=== PATIENT | male | born 1945 | race Caucasian/White ===

== ENCOUNTER 2018-08-13 10:28 | Outpatient (REF) | payer MEDICARE, SELFPAY ==
[2018-08-13 13:00] LABS: HCT 44.3 % (40.0-50.0); HGB 14.7 g/dL (13.5-17.5); Mean Corp. HGB Concentration 33.2 g/dL (32.0-36.0); Mean Corpuscular Hemoglobin 29.5 pg (27.0-33.0); Mean Platelet Volume 10.1 fL (8.0-11.0); Platelet Count 335 x1000/uL (130-400); RBC 4.98 m/cumm (4.50-6.00); RBC Distribution Width 13.3 % (11.8-14.1)
[2018-08-13 13:24] LABS: ALT 41 U/L (12-78); AST 41 U/L (15-37); Albumin 3.7 g/dL (3.4-5.0); Alkaline Phosphatase 101 U/L (46-116); Anion Gap 5.8 mmol/L (3-11); BUN 17 mg/dL (7-18); Bilirubin, Total 0.6 mg/dL (0.2-1.0); CO2 33.2 mmol/L (21.0-32.0); CREATININE 1.15 mg/dL (0.70-1.30); Calcium 9.5 mg/dL (8.5-10.1); Chloride 96 mmol/L (98-107); Cholesterol 198 mg/dL (50-200); Glucose 134 mg/dL (70-100); HDL Cholesterol 58 mg/dL (40-60); LDL CHOLESTEROL 129 mg/dL (<100); Potassium 3.4 mmol/L (3.5-5.1); Sodium 135 mmol/L (136-145); Total Protein 7.9 g/dL (6.4-8.2); Triglyceride 88 mg/dL (30-150)
== END 2018-08-13 10:48 ==
LOC: NCHCN 10:28
PROVIDERS: Visit Provider Family Medicine
DX: I10 Essential (primary) hypertension (principal); E78.5 Hyperlipidemia, unspecified
CPT/HCPCS: 80053; 80061; 83721; 85027

== ENCOUNTER 2020-01-20 16:26 | Outpatient (REF) | payer MEDICARE, SELFPAY ==
[2020-01-22 16:00] LABS: COVID-19 RT-PCR Result Not Detected ((See Note))
== END 2020-01-20 16:46 ==
LOC: LBO 16:26
PROVIDERS: Visit Provider Physician Assistant
DX: R06.00 Dyspnea, unspecified (principal)
CPT/HCPCS: U0003

== ENCOUNTER 2020-06-07 02:15 | Outpatient (CLI) | payer MEDICARE, SELFPAY ==
[2020-06-07 10:51] LABS: Abs Immature Grans 0.03 10^3/uL (0.0-0.06); Absolute Eosinophil Count 0.15 10^3/uL (0.0-0.7); Absolute Lymphocyte Count 1.56 10^3/uL (1.2-3.4); Absolute Monocyte Count 0.99 10^3/uL (0.1-0.8); Absolute Neutrophil Count 6.33 10^3/uL (1.2-6.7); Basophils % 1.1; Eosinophils % 1.6; HCT 43.9 % (40.0-50.0); HGB 14.9 g/dL (13.5-17.5); Immature Grans % 0.3; MCH 30.2 pg (27.0-33.0); MCHC 33.9 % (32.0-36.0); MCV 88.9 fL (80-95); MPV 9.2 fL (8.0-11.0); Monocytes % 10.8; Neutrophils % 69.2; Nucleated RBC 0 %; Platelet Count 386 10^3/uL (130-400); RBC 4.94 10^6/uL (4.36-5.78); RDW-SD 42.2 fL; WBC 9.16 10^3/uL (4.4-10.8)
[2020-06-07 11:24] LABS: ALT 25 U/L (16-63); AST 24 U/L (15-37); Albumin 3.5 g/dL (3.4-5.0); Alkaline Phosphatase 95 U/L (46-116); Anion Gap 8.3 mmol/L (3-11); BUN 9 mg/dL (7-18); Bilirubin, Total 0.4 mg/dL (0.2-1.0); C-Reactive Protein 2.68 mg/dL (0.0-0.3); CO2 29.7 mmol/L (21.0-32.0); CREATININE 1.02 mg/dL (0.70-1.30); Calcium 8.9 mg/dL (8.5-10.1); Chloride 99 mmol/L (98-107); Glucose 149 mg/dL (74-106); Potassium 3.9 mmol/L (3.5-5.1); Sodium 137 mmol/L (136-145); Total Protein 7.2 g/dL (6.4-8.2); Uric Acid 6.9 mg/dL (3.5-7.2)
[2020-06-07 11:29] LABS: ESR 27 mm/hr (1-20)
[2020-06-07 15:55] LABS: Rheumatoid Factor <8.6 IU/mL (<12.0)
[2020-06-08 09:41] LABS: Cyclic Citrullinated Peptide <2.5 U/mL (<5.0)
[2020-06-08 10:00] LABS: Hepatitis B Surface Ag Negative (Negative)
[2020-06-08 10:30] LABS: Hepatitis C Ab w Rflx HCV PCR Negative (Negative)
== END 2020-06-07 02:35 ==
PROVIDERS: PCP Family Medicine; Referring Provider Internal Medicine Rheumatology; Visit Provider Family Medicine
DX: L40.50 Arthropathic psoriasis, unspecified (principal); Z11.59 Encounter for screening for other viral diseases; Z01.84 Encounter for antibody response examination
CPT/HCPCS: 36415; 80053; 85652; 86200; 86803; 87340; 84550; 85025; 86140; 86431; 86704

== ENCOUNTER 2020-07-19 03:08 | Outpatient (CLI) | payer MEDICARE, SELFPAY ==
[2020-07-19 10:57] LABS: Abs Immature Grans 0.02 10^3/uL (0.0-0.06); Absolute Basophil Count 0.04 10^3/uL (0.0-0.2); Absolute Eosinophil Count 0.21 10^3/uL (0.0-0.7); Absolute Monocyte Count 0.82 10^3/uL (0.1-0.8); Absolute Neutrophil Count 5.04 10^3/uL (1.2-6.7); Basophils % 0.5; Eosinophils % 2.7; HCT 41.3 % (40.0-50.0); HGB 14.1 g/dL (13.5-17.5); Immature Grans % 0.3; Lymphocytes % 20.7; MCH 30.8 pg (27.0-33.0); MCHC 34.1 % (32.0-36.0); MCV 90.2 fL (80-95); MPV 9.4 fL (8.0-11.0); Monocytes % 10.6; Neutrophils % 65.2; Nucleated RBC 0 %; Platelet Count 369 10^3/uL (130-400); RBC 4.58 10^6/uL (4.36-5.78); RDW 13.1 % (11.8-14.1); RDW-SD 42.1 fL; WBC 7.73 10^3/uL (4.4-10.8)
[2020-07-19 11:51] LABS: ALT 19 U/L (16-63); AST 17 U/L (15-37); Albumin 3.7 g/dL (3.4-5.0); Alkaline Phosphatase 86 U/L (46-116); Anion Gap 4.7 mmol/L (3-11); BUN 17 mg/dL (7-18); Bilirubin, Total 0.6 mg/dL (0.2-1.0); CO2 31.3 mmol/L (21.0-32.0); CREATININE 1.07 mg/dL (0.70-1.30); Calcium 9.2 mg/dL (8.5-10.1); Chloride 100 mmol/L (98-107); Glucose 116 mg/dL (74-106); Potassium 3.6 mmol/L (3.5-5.1); Sodium 136 mmol/L (136-145); Total Protein 7.3 g/dL (6.4-8.2)
[2020-07-19 12:09] LABS: ESR 33 mm/hr (1-20)
== END 2020-07-19 03:28 ==
PROVIDERS: PCP Family Medicine; Visit Provider Internal Medicine Rheumatology
DX: L40.50 Arthropathic psoriasis, unspecified (principal)
CPT/HCPCS: 36415; 80053; 85652; 85025; 86140

== ENCOUNTER 2020-08-18 04:01 | Outpatient (CLI) | payer MEDICARE, SELFPAY ==
[2020-08-18 10:11] LABS: Abs Immature Grans 0.01 10^3/uL (0.0-0.06); Absolute Basophil Count 0.04 10^3/uL (0.0-0.2); Absolute Eosinophil Count 0.13 10^3/uL (0.0-0.7); Absolute Neutrophil Count 5.21 10^3/uL (1.2-6.7); Basophils % 0.5; Eosinophils % 1.8; HCT 42.8 % (40.0-50.0); HGB 14.7 g/dL (13.5-17.5); Immature Grans % 0.1; Lymphocytes % 18.9; MCH 30.4 pg (27.0-33.0); MCHC 34.3 % (32.0-36.0); MCV 88.6 fL (80-95); Monocytes % 8.1; Neutrophils % 70.6; Nucleated RBC 0 %; Platelet Count 369 10^3/uL (130-400); RBC 4.83 10^6/uL (4.36-5.78); RDW 13.3 % (11.8-14.1); RDW-SD 42.5 fL; WBC 7.39 10^3/uL (4.4-10.8)
[2020-08-18 10:23] LABS: ALT 25 U/L (16-63); AST 29 U/L (15-37); Albumin 3.7 g/dL (3.4-5.0); Alkaline Phosphatase 87 U/L (46-116); Anion Gap 4.2 mmol/L (3-11); BUN 10 mg/dL (7-18); Bilirubin, Total 0.6 mg/dL (0.2-1.0); CO2 31.8 mmol/L (21.0-32.0); CREATININE 1.04 mg/dL (0.70-1.30); Chloride 101 mmol/L (98-107); Glucose 106 mg/dL (74-106); Potassium 3.5 mmol/L (3.5-5.1); Sodium 137 mmol/L (136-145)
== END 2020-08-18 04:21 ==
PROVIDERS: Internal Medicine Rheumatology; PCP Family Medicine; Visit Provider Family Medicine
DX: L40.50 Arthropathic psoriasis, unspecified (principal)
CPT/HCPCS: 36415; 80053; 85025

== ENCOUNTER 2020-09-16 03:38 | Outpatient (CLI) | payer MEDICARE, SELFPAY ==
[2020-09-16 11:05] LABS: Abs Immature Grans 0.02 10^3/uL (0.0-0.06); Absolute Basophil Count 0.04 10^3/uL (0.0-0.2); Absolute Eosinophil Count 0.08 10^3/uL (0.0-0.7); Absolute Neutrophil Count 5.24 10^3/uL (1.2-6.7); Basophils % 0.6; Eosinophils % 1.1; HCT 40.2 % (40.0-50.0); HGB 13.9 g/dL (13.5-17.5); Immature Grans % 0.3; Lymphocytes % 18.4; MCH 30.7 pg (27.0-33.0); MCHC 34.6 % (32.0-36.0); MCV 88.7 fL (80-95); Monocytes % 5.6; Nucleated RBC 0 %; Platelet Count 340 10^3/uL (130-400); RBC 4.53 10^6/uL (4.36-5.78); RDW 14.1 % (11.8-14.1); RDW-SD 45.6 fL; WBC 7.08 10^3/uL (4.4-10.8)
[2020-09-16 11:58] LABS: ALT 28 U/L (16-63); AST 21 U/L (15-37); Albumin 3.8 g/dL (3.4-5.0); Alkaline Phosphatase 80 U/L (46-116); Anion Gap 7.7 mmol/L (3-11); BUN 14 mg/dL (7-18); Bilirubin, Total 0.7 mg/dL (0.2-1.0); CO2 28.3 mmol/L (21.0-32.0); CREATININE 1.17 mg/dL (0.70-1.30); Calcium 9.1 mg/dL (8.5-10.1); Chloride 100 mmol/L (98-107); Glucose 145 mg/dL (74-106); Potassium 3.6 mmol/L (3.5-5.1); Sodium 136 mmol/L (136-145); Total Protein 7.3 g/dL (6.4-8.2)
== END 2020-09-16 03:58 ==
PROVIDERS: PCP Family Medicine; Visit Provider Internal Medicine Rheumatology
DX: L40.50 Arthropathic psoriasis, unspecified (principal)
CPT/HCPCS: 36415; 80053; 85025

== ENCOUNTER 2020-12-02 02:43 | Outpatient (CLI) | payer MEDICARE, SELFPAY ==
[2020-12-02 10:27] LABS: Abs Immature Grans 0.01 10^3/uL (0.0-0.06); Absolute Basophil Count 0.04 10^3/uL (0.0-0.2); Absolute Eosinophil Count 0.09 10^3/uL (0.0-0.7); Absolute Lymphocyte Count 1.28 10^3/uL (1.2-3.4); Basophils % 0.6; Eosinophils % 1.4; HGB 13.7 g/dL (13.5-17.5); Immature Grans % 0.2; Lymphocytes % 19.6; MCH 31.3 pg (27.0-33.0); MCHC 34.3 % (32.0-36.0); MCV 91.3 fL (80-95); Monocytes % 9.2; Nucleated RBC 0 %; Platelet Count 321 10^3/uL (130-400); RBC 4.38 10^6/uL (4.36-5.78); RDW 13.1 % (11.8-14.1); RDW-SD 43.4 fL; WBC 6.52 10^3/uL (4.4-10.8)
[2020-12-02 11:20] LABS: ALT 35 U/L (16-63); AST 22 U/L (15-37); Albumin 3.6 g/dL (3.4-5.0); Alkaline Phosphatase 100 U/L (46-116); Anion Gap 5.2 mmol/L (3-11); BUN 12 mg/dL (7-18); Bilirubin, Total 0.8 mg/dL (0.2-1.0); CO2 31.8 mmol/L (21.0-32.0); CREATININE 1.1 mg/dL (0.70-1.30); Calcium 9.2 mg/dL (8.5-10.1); Chloride 97 mmol/L (98-107); Glucose 99 mg/dL (74-106); Potassium 4.4 mmol/L (3.5-5.1); Sodium 134 mmol/L (136-145); Total Protein 7.1 g/dL (6.4-8.2)
== END 2020-12-02 02:44 | disposition home or self-care (01) ==
LOC: LBO 02:43
PROVIDERS: PCP Family Medicine; Visit Provider Internal Medicine Rheumatology
DX: L40.50 Arthropathic psoriasis, unspecified (principal)
CPT/HCPCS: 36415; 80053; 85025

== ENCOUNTER 2021-02-28 04:15 | Outpatient (CLI) | payer MEDICARE, SELFPAY ==
[2021-02-28 12:16] LABS: Abs Immature Grans 0.03 10^3/uL (0.0-0.06); Absolute Basophil Count 0.04 10^3/uL (0.0-0.2); Absolute Eosinophil Count 0.23 10^3/uL (0.0-0.7); Absolute Monocyte Count 0.78 10^3/uL (0.1-0.8); Absolute Neutrophil Count 5.35 10^3/uL (1.2-6.7); Basophils % 0.5; Eosinophils % 2.9; HCT 41.8 % (40.0-50.0); Immature Grans % 0.4; Lymphocytes % 19.9; MCHC 33.5 % (32.0-36.0); MCV 92.5 fL (80-95); MPV 9.3 fL (8.0-11.0); Monocytes % 9.7; Neutrophils % 66.6; Nucleated RBC 0 %; Platelet Count 315 10^3/uL (130-400); RBC 4.52 10^6/uL (4.36-5.78); RDW 13.6 % (11.8-14.1); RDW-SD 45.6 fL; WBC 8.03 10^3/uL (4.4-10.8)
[2021-02-28 13:07] LABS: ALT 24 U/L (16-63); AST 23 U/L (15-37); Albumin 3.8 g/dL (3.4-5.0); Alkaline Phosphatase 98 U/L (46-116); Anion Gap 6.9 mmol/L (3-11); BUN 17 mg/dL (7-18); Bilirubin, Total 0.5 mg/dL (0.2-1.0); CO2 31.1 mmol/L (21.0-32.0); Calcium 9.1 mg/dL (8.5-10.1); Chloride 101 mmol/L (98-107); Glucose 92 mg/dL (74-106); Sodium 139 mmol/L (136-145); Total Protein 7.2 g/dL (6.4-8.2)
== END 2021-02-28 04:16 | disposition home or self-care (01) ==
LOC: LBO 04:15
PROVIDERS: PCP Family Medicine; Visit Provider Internal Medicine Rheumatology
DX: L40.50 Arthropathic psoriasis, unspecified (principal)
CPT/HCPCS: 36415; 80053; 85025

== ENCOUNTER 2021-06-16 04:06 | Outpatient (CLI) | payer MEDICARE, SELFPAY ==
[2021-06-16 09:04] LABS: Abs Immature Grans 0.02 10^3/uL (0.0-0.06); Absolute Basophil Count 0.05 10^3/uL (0.0-0.2); Absolute Eosinophil Count 0.21 10^3/uL (0.0-0.7); Absolute Lymphocyte Count 1.49 10^3/uL (1.2-3.4); Absolute Monocyte Count 0.51 10^3/uL (0.1-0.8); Absolute Neutrophil Count 4.38 10^3/uL (1.2-6.7); Basophils % 0.8; ESR 9 mm/hr (0-20); Eosinophils % 3.2; HCT 42.7 % (40.0-50.0); HGB 14.1 g/dL (13.5-17.5); Immature Grans % 0.3; Lymphocytes % 22.4; MCH 29.9 pg (27.0-33.0); MCV 90.5 fL (80-95); MPV 9.3 fL (8.0-11.0); Monocytes % 7.7; Neutrophils % 65.6; Nucleated RBC 0 %; Platelet Count 316 10^3/uL (130-400); RBC 4.72 10^6/uL (4.36-5.78); RDW 13.5 % (11.8-14.1); RDW-SD 44.5 fL; WBC 6.66 10^3/uL (4.4-10.8)
[2021-06-16 10:22] LABS: ALT 29 U/L (16-63); AST 25 U/L (15-37); Albumin 3.9 g/dL (3.4-5.0); Alkaline Phosphatase 81 U/L (46-116); Anion Gap 4.7 mmol/L (3-11); BUN 14 mg/dL (7-18); Bilirubin, Total 0.8 mg/dL (0.2-1.0); C-Reactive Protein 1.15 mg/dL (0.0-0.3); CO2 35.3 mmol/L (21.0-32.0); CREATININE 0.9 mg/dL (0.70-1.30); Calcium 9.4 mg/dL (8.5-10.1); Chloride 101 mmol/L (98-107); Glucose 95 mg/dL (74-106); Sodium 141 mmol/L (136-145); Total Protein 7.7 g/dL (6.4-8.2)
== END 2021-06-16 04:07 | disposition home or self-care (01) ==
PROVIDERS: PCP Family Medicine; Visit Provider Internal Medicine
DX: L40.50 Arthropathic psoriasis, unspecified (principal)
CPT/HCPCS: 36415; 80053; 85652; 85025; 86140

== ENCOUNTER 2021-08-02 08:55 | Outpatient (CLI) | payer MEDICARE, SELFPAY ==
[2021-08-02 10:17] LABS: Abs Immature Grans 0.02 10^3/uL (0.0-0.06); Absolute Basophil Count 0.04 10^3/uL (0.0-0.2); Absolute Eosinophil Count 0.18 10^3/uL (0.0-0.7); Absolute Lymphocyte Count 1.45 10^3/uL (1.2-3.4); Absolute Monocyte Count 0.81 10^3/uL (0.1-0.8); Absolute Neutrophil Count 4.86 10^3/uL (1.2-6.7); Basophils % 0.5; Eosinophils % 2.4; HCT 45.1 % (40.0-50.0); HGB 15.4 g/dL (13.5-17.5); Immature Grans % 0.3; Lymphocytes % 19.7; MCH 29.8 pg (27.0-33.0); MCHC 34.1 % (32.0-36.0); MCV 87.2 fL (80-95); Neutrophils % 66.1; Nucleated RBC 0 %; Platelet Count 289 10^3/uL (130-400); RBC 5.17 10^6/uL (4.36-5.78); RDW 13.9 % (11.8-14.1); RDW-SD 43.9 fL; WBC 7.36 10^3/uL (4.4-10.8)
[2021-08-02 10:26] LABS: ESR 11 mm/hr (0-20)
[2021-08-02 11:24] LABS: ALT 46 U/L (16-63); AST 39 U/L (15-37); Albumin 4.1 g/dL (3.4-5.0); Alkaline Phosphatase 80 U/L (46-116); Anion Gap 8.4 mmol/L (3-11); BUN 12 mg/dL (7-18); Bilirubin, Total 0.6 mg/dL (0.2-1.0); C-Reactive Protein 0.95 mg/dL (0.0-0.3); CO2 32.6 mmol/L (21.0-32.0); CREATININE 1.1 mg/dL (0.70-1.30); Calcium 9.5 mg/dL (8.5-10.1); Chloride 102 mmol/L (98-107); Glucose 118 mg/dL (74-106); Potassium 3.8 mmol/L (3.5-5.1); Sodium 143 mmol/L (136-145); Total Protein 7.6 g/dL (6.4-8.2)
== END 2021-08-02 08:56 | disposition home or self-care (01) ==
LOC: LBO 08:55
PROVIDERS: PCP Family Medicine; Visit Provider Internal Medicine Rheumatology
DX: L40.50 Arthropathic psoriasis, unspecified (principal)
CPT/HCPCS: 36415; 80053; 85652; 85025; 86140

== ENCOUNTER 2021-12-19 04:20 | Outpatient (CLI) | payer MEDICARE, SELFPAY ==
[2021-12-19 11:24] LABS: Abs Immature Grans 0.01 10^3/uL (0.0-0.06); Absolute Basophil Count 0.04 10^3/uL (0.0-0.2); Absolute Eosinophil Count 0.24 10^3/uL (0.0-0.7); Absolute Monocyte Count 0.84 10^3/uL (0.1-0.8); Absolute Neutrophil Count 4.56 10^3/uL (1.2-6.7); Basophils % 0.5; Eosinophils % 3.3; HCT 43.7 % (40.0-50.0); HGB 14.6 g/dL (13.5-17.5); Immature Grans % 0.1; Lymphocytes % 21.9; MCH 30.1 pg (27.0-33.0); MCHC 33.4 % (32.0-36.0); MCV 90.1 fL (80-95); MPV 9.2 fL (8.0-11.0); Monocytes % 11.5; Neutrophils % 62.7; Nucleated RBC 0 %; Platelet Count 322 10^3/uL (130-400); RBC 4.85 10^6/uL (4.36-5.78); RDW 13.9 % (11.8-14.1); RDW-SD 45.6 fL; WBC 7.29 10^3/uL (4.4-10.8)
[2021-12-19 11:28] LABS: ESR 16 mm/hr (0-20)
[2021-12-19 12:33] LABS: ALT 24 U/L (16-63); AST 17 U/L (15-37); Albumin 4.3 g/dL (3.4-5.0); Alkaline Phosphatase 94 U/L (46-116); Anion Gap 8.2 mmol/L (3-11); BUN 17 mg/dL (7-18); Bilirubin, Total 0.6 mg/dL (0.2-1.0); C-Reactive Protein 0.85 mg/dL (0.0-0.3); CO2 30.8 mmol/L (21.0-32.0); CREATININE 0.9 mg/dL (0.70-1.30); Calcium 9.4 mg/dL (8.5-10.1); Chloride 98 mmol/L (98-107); Glucose 97 mg/dL (74-106); Potassium 3.8 mmol/L (3.5-5.1); Sodium 137 mmol/L (136-145); Total Protein 7.6 g/dL (6.4-8.2)
== END 2021-12-19 04:21 | disposition home or self-care (01) ==
LOC: LBO 04:20
PROVIDERS: Internal Medicine; PCP Family Medicine; Visit Provider Internal Medicine Rheumatology
DX: L40.50 Arthropathic psoriasis, unspecified (principal)
CPT/HCPCS: 36415; 80053; 85652; 85025; 86140

== ENCOUNTER 2022-05-05 01:14 | Outpatient (CLI) | payer MEDICARE, SELFPAY ==
--- OUTSIDE RECORDS SUMMARY | 2022-05-05 01:21 | XMS_ITS | Encounter Summary ---
:1945 Author Organization [facility] Address [address] [place] [address] Care Team Providers Name Role Phone Priscilla Moura MD Primary Care Provider Encounter Details Date Type Department Care Team Description 07/26/2020 Office Visit Rheumatology at [facility] [place] Jaylan, Psoriatic arthritis; [facility] Giovanni Ramos Medication monitoring encounter; [facility] MEDICAL High risk medication use; [place] [address] Pain in both feet; [phone] RHEUMATOLOGY DEP T Chronic pain of both knees; [place] [address] 6 Psoriasis; [phone] Morning joint s tiffness (Work) Social History Tobacco Use Types Packs/Day Years Used Date Former Smoker Cigarettes Smokeless Tobacco: Never Used Alcohol Use Standard Drinks/Week Comments Yes 0 (1 standard drink = 0.6 oz pure alcoho l) Alcohol Habits Answer Date Recorded How often do you have a drink containing 4 or more times a w [place] 06/02/2020 alcohol? How many drinks containing alcohol do you have Not asked on a typical day when you are drinking? How often do you have six or more drinks on one Not asked occasion? Comment: Not asked Sex Assigned at Date Recorded Not on file documented as of this encounter Last Filed Vital Signs Vital Sign [place] Time Taken Comments Blood Pressure 145/81 07/26/2020 10:54 AM EST Pulse 76 07/26/2020 10:54 AM EST Temperature 36.6 ??C (97.8 ??F) 07/26/2020 10:54 AM EST Respiratory Rate - - Oxygen Saturation 99% 07/26/2020 10:54 AM EST Inhaled Oxygen Concentration - - Weight 81.6 kg (180 lb) 07/26/2020 10:54 AM EST Height 167.6 cm (5' 6) 07/26/2020 10:54 AM EST Body Mass Index 29.05 07/26/2020 10:54 AM EST documented in this encounter Progress Notes Richard Tian - 07/26/2020 11:00 AM EST Rheumatology Outpatient Follow Up Note PCP: Priscilla Moura MD Mack Charles is a 75 y.o. male who we are seeing for the continuing management of psoriatic arthritis. Rheum History: -Presented 06/06 with long standing extensive psoriasis and arthritis symptoms but was never on treatment due to insurance and cost issues. -His physical examination showed sausage digits, enthesitis at b/l achilles and extensive psoriasis. -His labs from external facility showed normal RF, anti CCP ab and neg Hepatitis serologies. He had normal LFTs as well. -Started on 15 mg of MTX weekly and daily folic acid. I have reviewed the patient's medical, family and social history in detail; there are no changes to the history as noted in the electronic medical record. Meds and Allergies: Reviewed in eDH Interval History: Accompanied by his partner today. Very hard of hearing. Feels the same with pain but the range of motion improved. Skin disease is feeling better as well. Has morning stiffness less than half an hour nowadays. The only joints which are hurting right now are his knees and the feet. ROS (positives in bold): Gen: No fevers, no chills, no night sweats Pulm: No SOB and no cough CV: No chest pain Abd: No abd pain, no nausea, no vomiting, no diarrhea MSK: See HPI Physical exam: BP 145/81 Pulse 76 Temp 36.6 ??C (97.8 ??F) (Temporal) Ht 167.6 cm (5' 6) Wt 81.6 kg (180 lb) SpO2 99% BMI 29.05 kg/m?? Gen: Well appearing, alert and oriented x 3, NAD HEENT: Moist mucous membranes, no oral ulcers, normal sclerae Lymph: No cervical LAD Heart: Regular rate, no murmurs, rubs or gallops Lungs: Clear to auscultation b/l Abd: Soft, NT/ND, bowel sounds + Skin: Warm and dry, small psoriatic patches on bilateral extensor elbows Joints: Normal ROM throughout the upper and lower extremity joints, no synovitis or tenderness in the hands, bilateral Rhiannon's and Heberden's, wrists,elbows, shoulders, bilateral patellar tendinitis, right great toe mildly swollen and tender Labs/Studies: His last lab work from 07/19/20 shows normal AST/ALT and CBC. Mildly elevated CRP at 2.5. (0-0.3) and ESR of 33. (1-20). Assessment: Mack Charles is a 75 y.o. male with the PMH of psoriasis, PsA, HTN and anxiety who is presenting for follow up of his psoriatic arthritis. Presented last visit with extensive psoriasis and arthritis symptoms but he was never on treatment due to insurance and cost issues. His physical examination showed sausage digits, enthesitis at b/l achilles and extensive psoriasis. His labs from external showed normal RF, anti CCP ab, mildly elevated ESR, CRP and neg Hepatitis serologies. He had normal LFTs as well. He was started on 15 mg of MTX weekly and daily folic acid. His last lab work from 07/19/20 shows normal AST/ALT and CBC. Mildly elevated CRP at 2.5. (0-0.3) and ESR of 33. (1-20). Currently he feels significantly better compared to before. Morning stiffness of less than half an hour and no recent red/hot/swollen joints. Physical examination does not show any evidence of synovitis in the hands but he has some tendinitis in his knees and there is mild soft tissue swelling around the right great toe. He has been tolerating methotrexate without any side effects. Plan: -Continue methotrexate at 15 milligrams weekly along with daily folic acid. -If labs remain stable, will go up on methotrexate to 20 mg next month. -Continue monthly lab checks for now, until on a stable dose of methotrexate. -Continue Voltaren gel as needed on knees and feet. -Patient is not sure what vaccinations he has received, his partner will discuss with his PCP and get updated vaccines. Patient was discussed with Dr. Harris. Richard Tian MD Rheumatology Fellow Pager: [phone] Raymond Harris MD - 07/26/2020 11:00 AM EST Attestation Rheumatology I have seen and examined the patient, reviewed the above history, exam, and assessment. I agree with the details as written. The assessment and plan was formulated with the fellow, Richard Tian MD in discussion with me and I agree with the details as written except revision below. Pertinent History: Mack Charles is a 75 y.o. male psoriatic arthritis and psoriasis currently on methotrexate and folic acid normal RF and CCP reports reduced morning stiffness with some bilateral knee pain and foot pain Pertinent Exam: No active synovitis noted on exam hard of hearing Major issues addressed and Plan: /Nissa psoriatic arthritis, hypertension, anxiety, hard of hearing, elevated CRP ESR WNL overall doing quite well we will continue Voltaren gel. We will confirm the patient is up-to-date on vaccinations. Continue methotrexate with methotrexate monitoring labs monthly if titrating up once on stable dose for 2 to 3 months then will monitor every 3 months Raymond Harris MD documented in this encounter Plan of Treatment Upcoming Encounters Date Type Specialty Care Team Description 05/09/2022 Office Visit Rheumatology Alexandro Tian nd, MD [place] [address] (Wo rk) documented as of this encounter Visit Diagnoses Diagnosis Psoriatic arthritis Psoriatic arthropathy Medication monitoring encounter Encounter for therapeutic drug monitorin g High risk medication use Encounter for long-term (current) use of other medications Pain in both feet Pain in limb Chronic pain of both knees Psoriasis Other psoriasis Morning joint stiffness Stiffness of joint, not elsewhere classi fied, unspecified site documented in this encounter Care Teams Blower Operator Relationship Specialty Start Date End Date Priscilla Moura MD PCP - General Family Medicine 05/05/20 [address] [place] [address] documented as of this encounter
--- OUTSIDE RECORDS SUMMARY | 2022-05-05 01:21 | XMS_ITS | Encounter Summary ---
:1945 Author Organization [facility] [place] [address] Care Team Providers Name Role Phone Priscilla Moura MD Primary Care Provider Reason for Visit Reason Onset Date Comments Medication Refill 10/14/2020 Encounter Details Date Type Department Care Team Description 10/14/2020 Refill Rheumatology at [facility] [place] Jaylan, Sonjaekanand, Psoriatic arthritis [facility] [place] [address] [facility] [phone] RHEUMATOLOGY [place], [place] [address] (Wo rk) Social History Tobacco Use Types Packs/Day Years Used Date Former Smoker Cigarettes Smokeless Tobacco: Never Used Alcohol Use Standard Drinks/Week Comments Yes 0 (1 standard drink = 0.6 oz pure alcoho l) Alcohol Habits Answer Date Recorded How often do you have a drink containing 4 or more times a w [employer] [place] 06/02/2020 alcohol? How many drinks containing alcohol do you have Not asked on a typical day when you are drinking? How often do you have six or more drinks on one Not asked occasion? Comment: Not asked Sex Assigned at Date Recorded Not on file documented as of this encounter Miscellaneous Notes Telephone Encounter - Roge Still RN - 10/18/2020 11:43 AM EST Rheumatology appointment in the last 6 months? YES RN confirm MTX dose? 15 mg weekly Most recent labs: External labs? YES [No results found for: WBC, HGB, MCV, PLATELET, CREATININE, ALBUMIN, AST, ALT] If last labs >12 weeks, were new labs ordered per protocol by RN? NO Follow-up appointment scheduled: YES documented in this encounter Plan of Treatment Upcoming Encounters Date Type Specialty Care Team Description 05/09/2022 Office Visit Rheumatology Alexandro Tian nd, [place] [address] (Wo rk) documented as of this encounter Visit Diagnoses Diagnosis Psoriatic arthritis Psoriatic arthropathy documented in this encounter Care Teams Viscose Cellar Charge Hand Relationship Specialty Start Date End Date Priscilla Moura MD PCP - General Family Medicine 05/05/20 [address] [place] [address] documented as of this encounter
--- OUTSIDE RECORDS SUMMARY | 2022-05-05 01:21 | XMS_ITS | Encounter Summary ---
:1945 Author Organization [facility] [place] [address] Care Team Providers Name Role Phone Priscilla Moura MD Primary Care Provider Reason for Visit Reason Comments Medication Refill Encounter Details Date Type Department Care Team Description 06/06/2021 Refill Rheumatology at [facility] Richard Tian, Psoriatic arthritis [facility] [place] [address] [facility] [phone] RHEUMATOLOGY DEP [place], [place] [address] (Wo rk) Social History Tobacco Use Types Packs/Day Years Used Date Former Smoker Cigarettes Smokeless Tobacco: Never Used Alcohol Use Standard Drinks/Week Comments Yes 0 (1 standard drink = 0.6 oz pure alcoho l) Alcohol Habits Answer Date Recorded How often do you have a drink containing 4 or more times a w [place] 06/02/2020 alcohol? How many drinks containing alcohol do you have Not asked on a typical day when you are drinking? How often do you have six or more drinks on one Not asked occasion? Comment: Not asked Sex Assigned at Date Recorded Not on file documented as of this encounter Plan of Treatment Upcoming Encounters Date Type Specialty Care Team Description 05/09/2022 Office Visit Rheumatology Alexandro Tian nd, MD [place], [place] [address] (Wo rk) documented as of this encounter Visit Diagnoses Diagnosis Psoriatic arthritis Psoriatic arthropathy documented in this encounter Care Teams Riveter Helper Relationship Specialty Start Date End Date Priscilla Moura MD PCP - General Family Medicine 05/05/20 [address] [place] [address] documented as of this encounter
--- OUTSIDE RECORDS SUMMARY | 2022-05-05 01:21 | XMS_ITS | Encounter Summary ---
:1945 Demographics Home Phone Preferred Language Unknown Marital Status Unknown Congregational Affiliation Unknown Race Unknown Ethnic Group Unknown Author Organization [facility] Address [address] [place] [address] Care Team Providers Name Role Phone Unavailable Primary Care Provider Unavailable Encounter Details Date Type Department Care Team Description 06/07/2020 Lab Requisition [facility] Outr Resulting Lab, Pathology & Laboratory Provider [facility] [address] [place] [address] Social History Tobacco Use Types Packs/Day Years Used Date Never Assessed Sex Assigned at Date Recorded Not on file documented as of this encounter Plan of Treatment Not on filedocumented as of this encounter Procedures Procedure Name Priority Date/Time Associated Diagnosis Comme nts CCP ANTIBODIES Routine 06/07/2020 10:30 Results f or this EDT procedure are i n the results section. RHEUMATOID FACTOR Routine 06/07/2020 10:30 Result s for this EDT procedure are i n the results section. documented in this encounter Results RHEUMATOID FACTOR (06/07/2020 10:30 EDT) Pathologist Sig nature Rheumatoid Factor <8.6 <12.0 IU/mL [facility] Specimen Blood - Venous blood (substance) Performing Organization Address [facility]/ZIP Code Phon e Number [facility] [address] [place] [address] SERVICES CCP ANTIBODIES (06/07/2020 10:30 EDT) Pathologist Sig nature CCP Antibodies <2.5 <5.0 U/mL [facility] ORY SERVICES Specimen Blood - Venous blood (substance) Performing Organization Address City/[facility]/ZIP Code Phon e Number [facility] [address] [place] [address] SERVICES documented in this encounter Visit Diagnoses Not on filedocumented in this encounter
--- OUTSIDE RECORDS SUMMARY | 2022-05-05 01:21 | XMS_ITS | Encounter Summary ---
:1945 Author Organization [facility] [place] [address] Care Team Providers Name Role Phone Priscilla Moura MD Primary Care Provider Reason for Visit Consultation (Routine) - Specialty Diagnoses / Procedures Referred By Contact Refer red To Contact Rheumatology Diagnoses Other psoriasis Priscilla Moura MD [facility] Rheumatology 5c [address] [place] [address] [place] [address] Fax: Referral ID Status Reason Start Date Expiration Date Visits V isits Requested Authorized [id number] Consult, Test 04/30/2020 04/30/2021 [facility] PCP Updated and/or Approved Encounter Details Date Type Department Care Team Description 06/02/2020 Office Visit Rheumatology at [facility] Erasmo Cortes MD [facility] [address] [place] [address] Psoriatic arthritis [facility] Richard Tian MD [facility] [place] [address] [place] [address] Social History Tobacco Use Types Packs/Day Years Used Date Former Smoker Cigarettes Smokeless Tobacco: Never Used Alcohol Use Standard Drinks/Week Comments Yes 0 (1 standard drink = 0.6 oz pure alcoho l) Alcohol Habits Answer Date Recorded How often do you have a drink containing 4 or more times a w [place] 06/02/2020 alcohol? How many drinks containing alcohol do you have Not asked on a typical day when you are drinking? How often do you have six or more drinks on one Not asked occasion? Comment: Not asked Sex Assigned at Date Recorded Not on file documented as of this encounter Last Filed Vital Signs Vital Sign [place] Time Taken Comments Blood Pressure 143/81 06/02/2020 12:45 PM EDT Pulse 73 06/02/2020 12:45 PM EDT Temperature - - Respiratory Rate 20 06/02/2020 12:45 PM EDT Oxygen Saturation 97% 06/02/2020 12:45 PM EDT Inhaled Oxygen Concentration - - Weight 81.7 kg (180 lb 3.2 oz) 06/02/2020 12:45 PM EDT Height 167.6 cm (5' 6) 06/02/2020 12:45 PM EDT Body Mass Index 29.09 06/02/2020 12:45 PM EDT documented in this encounter Progress Notes Richard Tian - 06/02/2020 1:00 PM EDT Rheumatology Outpatient Consultation Note Reason for Consult: Mack Charles is a 75 y.o. male who we are seeing at the request of Priscilla Moura for evaluation of suspected psoriatic arthritis. HPI: 75 year old male with the PMH of psoriasis diagnosed 10 years ago, HTN and anxiety who is presentingfor evaluation of suspected psoriatic arthritis. He reports he started having right sided thumb and wrist pain and swelling a year ago. He just took as needed ibuprofen and was evaluated by dermatologyand was physician. He has been extremely reluctant to take any medications, partly due to insurance and cost issues. His left sided thumb and first finger also got painful 6 months ago. Both knees and ankles have been hurting and swollen as well. Has a morning stiffness of around half to an hour. He has difficulty performing his activities of daily living including not being able to button his shirt or tie his shoes. Denies his rash getting worse recently but according to him, the rash has never improved at all. No back pain or any systemic symptoms. Medical History: Past Medical History: Diagnosis Date ??? HTN (hypertension) ??? Psoriasis Surgical History: Past Surgical History: Procedure Laterality Date ??? APPENDECTOMY ??? HERNIA REPAIR Family Hx: Family History Problem Relation Age of Onset ??? Rheumatoid Arthritis Father No family history of SLE, OA, Sjogren's, Scleroderma, or gout Social History: Social History Socioeconomic History ??? Marital status: Single Spouse name: Not on file ??? Number of children: Not on file ??? Years of education: Not on file ??? Highest education level: Not on file Occupational History ??? Not on file Social Needs ??? Financial resource strain: Not on file ??? Food insecurity Worry: Not on file Inability: Not on file ??? Transportation needs Medical: Not on file Non-medical: Not on file Tobacco Use ??? Smoking status: Former Smoker Types: Cigarettes ??? Smokeless tobacco: Never Used Substance and Sexual Activity ??? Alcohol use: Yes Frequency: 4 or more times a week ??? Drug use: Never ??? Sexual activity: Not on file Lifestyle ??? Physical activity Days per week: Not on file Minutes per session: Not on file ??? Stress: Not on file Relationships ??? Social connections Talks on phone: Not on file Gets together: Not on file Attends anglican service: Not on file Active member of club or organization: Not on file Attends meetings of clubs or organizations: Not on file Relationship status: Not on file ??? Intimate partner violence Fear of current or ex partner: Not on file Emotionally abused: Not on file Physically abused: Not on file Forced sexual activity: Not on file Other Topics Concern ??? Not on file Social History Narrative ??? Not on file Medications: No current outpatient medications on file prior to visit. No current facility-administered medications on file prior to visit. Allergies: Beta blockers ROS (positive in bold): General: Fever, chills, night sweats, weight loss/gain HEENT: Oral ulcers, dry eyes, dry mouth, red/itchy eyes Card: Chest pain, palpitations Pulm: SOB, cough GI: Abd pain, nausea, vomiting, diarrhea, dysphagia, reflux : Dysuria, urgency, hematuria, genital ulcers MS: Arthritis, arthralgia, muscle aches Neuro: Weakness, numbness, tingling, headache Skin: Raynaud's, rash, hair loss, photosensitivity, hair changes Psych: Depression, anxiety, difficulty sleeping Physical Examination: BP 143/81 Pulse 73 Resp 20 Ht 167.6 cm (5' 6) Wt 81.7 kg (180 lb 3.2 oz) SpO2 97% BMI 29.09 kg/m?? General: Well appearing, NAD HEENT: Mucous membranes are moist, no oral mucosal ulcerations Neck: Supple, no lymphadenopathy, full range of motion Cardiovascular: RRR, no m/r/g, normal S1/S2, 2+ pulses Lungs: CTA b/l no w/r/r Abdomen: Soft, nontender, nondistended, normal active bowel sounds, no hepatosplenomegaly Back: Nontender over the spine Neuro: Alert and oriented x3. Cranial nerves II through XII grossly intact. Strength 5/5 throughout,Sensation to light touch is grossly normal throughout. Skin: Extensive psoriatic patches on lower abdomen and back, extensor surfaces of legs and arms Nails: Nail pitting b/l Extremities: Shoulders: FROM, non-tender to palpation Elbows:FROM Wrists: FROM, no swelling, mildly tender right wrist joint Hands: Left thumb IP joint and index finger DIP joint tender and swollen, right thumb IP joint tender and swollen, no MCP compression tenderness, full claw and fist Hips: FROM, no tenderness Knees: FROM, no effusion, tenderness to the anterior knee b/l, more on right knee Ankles: FROM, mildly tender, no effusion Feet: MTP compression tenderness neg Laboratory Data: Last 3 Lytes No results for input(s): NA, K, CL, CO2, BUN, CREATININE in the last 7068 hours. Last 3 LFTs No results for input(s): AST, ALT, ALKPHOS, BILITOT, BILIDIR in the last 7068 hours. Last CRP, SEDRATENo results for input(s): CRP, SEDRATE in the last 7068 hours. Last 3 CBC No results for input(s): WBC in the last 7068 hours. Assessment: 75 year old male with the PMH of psoriasis diagnosed 10 years ago, HTN and anxiety who is presentingfor evaluation of suspected psoriatic arthritis. He has extensive psoriasis and follows up with Dermatology but has never been on treatment due to insurance and cost issues. He was recently treated with prednisone taper for his left first finger swelling and pain. His physical examination shows sausage digits, enthesitis at b/l achilles and extensive psoriasis. He has never been seen at [facility] andthe referral scanned documents don't have labs or any imaging studies. His clinical presentation is suggestive of psoriatic arthritis but he needs further work up including routine labs, RF, anti CCP, Hand xrays and serologies in case he would need to be started on biologics could be done later due tothe cost concerns right now. Plan: -Check CBC, CMP, ESR, CRP, RF, anti CCP, hepatitis serology. External lab orders provided to the patient. -If LFT's normal, would start on MTX 15 mg weekly along with 1 mg folic acid. -Needs to cut down on drinking if we were to start on methotrexate. -Discussed the rationale relatedto hepatotoxicity in detail with the patient. The patient was seen and discussed with Dr Cortes. Richard Tian MD Rheumatology Fellow Pager: [phone] CC: Priscilla Moura MD Erasmo Cortes MD - 06/02/2020 1:00 PM EDT ATTENDING ADDENDUM The patient's history was reviewed, and I interviewed and examined the patient with Dr. Tian. I agree with his summary, findings, and plan. Probable psoriatic arthritis. Trial methotrexate. Erasmo Cortes MD Staff Clinical Sales Consultant documented in this encounter Plan of Treatment Upcoming Encounters Date Type Specialty Care Team Description 05/09/2022 Office Visit Rheumatology Alexandro Tian nd, MD [place] [address] (Wo rk) documented as of this encounter Visit Diagnoses Diagnosis Psoriatic arthritis Psoriatic arthropathy documented in this encounter Care Teams Electric Locomotive Crane Operator Relationship Specialty Start Date End Date Priscilla Moura MD PCP - General Family Medicine 05/05/20 [address] [place] [address] documented as of this encounter
--- OUTSIDE RECORDS SUMMARY | 2022-05-05 01:21 | XMS_ITS | Encounter Summary ---
:1945 Author Organization [place] [address] Care Team Providers Name Role Phone Priscilla Moura MD Primary Care Provider Encounter Details Date Type Department Care Team Description 12/27/2021 Telephone Rheumatology at [facility] [place] Richard Tian [place] [address] RHEUMATOLOGY DEPT [phone] [place], [place] [address] (Wo rk) Social History Tobacco Use Types Packs/Day Years Used Date Former Smoker Cigarettes Smokeless Tobacco: Never Used Alcohol Use Standard Drinks/Week Comments Yes 0 (1 standard drink = 0.6 oz pure alcoho l) Alcohol Habits Answer Date Recorded How often do you have a drink containing 4 or more times a w [place] 06/02/2020 alcohol? How many drinks containing alcohol [...] Office Visit Rheumatology Alexandro Tian nd, MD [place], [place] [address] (Wo rk) documented as of this encounter Visit Diagnoses Not on filedocumented in this encounter Care Teams Ditch Inspector Relationship Specialty Start Date End Date Priscilla Moura MD PCP - General Family Medicine 05/05/20 [address] [place], [place] [id number] documented as of this encounter
--- OUTSIDE RECORDS SUMMARY | 2022-05-05 01:21 | XMS_ITS | Clinical Summary ---
:1945 Author Organization [facility] Address [place] [id number] Care Team Providers Name Role Phone Priscilla Moura MD Primary Care Provider Allergies Active Allergy Reactions Severity Noted Date Comments Beta-Blockers Other (See Comments) 06/02/2020 Pt sta sara that he (Beta-Adrenergic sleeps a lo t when Blocking Agts) taking these medications Latex Rash 06/02/2020 Medications Medication Sig Dispensed Refills Start Date End Date Status citalopram (CeleXA) 20 mg TAKE 1 2 (ONE 0 03/17/2020 Active Tablet HALF) TABLET BY MOUTH ONCE DAILY hydroCHLOROthiazide TAKE 1 TABLET 0 04/08/2020 Active (Hydrodiuril) 25 mg BY MOUTH ONCE Tablet DAILY losartan (Cozaar) 50 mg Take 25 mg by 0 05/12/2020 Active Tablet mouth daily. NIFEdipine CC (Adalat CC) TAKE 1 TABLET 0 05/12/2020 Active 30 mg Tablet Sustained BY MOUTH ONCE Release DAILY potassium chloride ER TAKE 1 TABLET 0 03/17/2020 Active (K-Dur/Klor-Con) 20 mEq BY MOUTH ONCE Tab Sust.Rel. DAILY Particle/Crystal zolpidem (AMBIEN) 10 mg TAKE 1 2 TO 1 0 03/26/2020 Active Tablet TABLET BY MOUTH AT BEDTIME NEEDED FOR INSOMNIA diclofenac (VOLTAREN) 1 % Apply topically 100 g 3 07/26/20 20 Active GelIndications: Psoriatic 3 times daily arthritis as needed. Additional Information Patient not taking. Reported on 02/06/2022 aspirin EC 81 mg Tablet, Take 81 mg by mouth 0 Active Delayed Release (E.C.) daily. metHOTREXate 2.5 mg Take 8 tablets (20 mg) 32 tablet 3 022 Active TabletIndications: Psoriatic by mouth once a week. arthritis folic acid (Folvite) 1 mg Take 1 tablet by mouth 90 tablet 3 0 02/06/2022 Active TabletIndications: Psoriatic daily. arthritis Active Problems No known active problems Encounters Date Type Specialty Care Team Description 02/06/2022 Hospital Encounter Radiology Helen Wharton P soriatic arthritis DO 02/06/2022 Office Visit Rheumatology Richard Tian MD Psori atic arthritis from Last 3 Months Family History Medical History Relation Comments Rheumatoid Arthritis Father Relation Status Comments Father Social History Tobacco Use Types Packs/Day Years Used Date Former Smoker Cigarettes Smokeless Tobacco: Never Used Alcohol Use Standard Drinks/Week Comments Yes 0 (1 standard drink = 0.6 oz pure alcoho l) Alcohol Habits Answer Date Recorded How often do you have a drink containing 4 or more times a w [place] 06/02/2020 alcohol? How many drinks containing alcohol do you have Not asked on a typical day when you are drinking? How often do you have six or more drinks on one Not asked occasion? Comment: Not asked Sex Assigned at Date Recorded Not on file Last Filed Vital Signs Vital Sign Reading Time Taken Comments Blood Pressure 127/65 02/06/2022 11:03 AM EDT Pulse 65 02/06/2022 11:03 AM EDT Temperature 36.2 ??C (97.2 ??F) 02/06/2022 11:03 AM EDT Respiratory Rate 18 02/06/2022 11:03 AM EDT Oxygen Saturation 98% 02/06/2022 11:03 AM EDT Inhaled Oxygen Concentration - - Weight 81.9 kg (180 lb 8 oz) 02/06/2022 11:03 AM EDT Height 167.6 cm (5' 6) 02/06/2022 11:03 AM EDT Body Mass Index 29.13 02/06/2022 11:03 AM EDT Plan of Treatment Upcoming Encounters Date Type Specialty Care Team Description 05/09/2022 Office Visit Rheumatology Alexandro Tain nd, MD [place] [address] (Wo rk) Health Maintenance Due Date Last Done Comments Covid-19 Vaccine (#1) 01/16/1950 Hepatitis C Screening 1965 Lipid Screening 1965 Tdap adult 1966 Tetanus vaccine 1966 Colonoscopy 01/16/1992 Zoster vaccine (1 of 2) 1997 Advance Directive 2002 AAA Screen 01/16/2012 Pneumoccocal Vaccine: 65+ (1 - PCV) 01/16/2012 Influenza (Flu) vaccine (1 of 1 - Influenza standard 05/18/2022 series) Procedures Procedure Name Priority Date/Time Associated Comments Diagnosis DIFFERENTIAL, Routine 02/06/2022 12:21 Psoriatic arthritis Res ults for this AUTOMATED PM EDT procedure are i n the results section. HEMOGRAM Routine 02/06/2022 12:21 Psoriatic arthritis Resu lts for this PM EDT procedure are i n the results section. HC C-REACTIVE PROTEIN Routine 02/06/2022 12:21 Psoriatic arthr itis Results for this PM EDT procedure are i n the results section. COMPREHENSIVE Routine 02/06/2022 12:21 Psoriatic arthritis Res ults for this METABOLIC PANEL PM EDT procedure ar e in (NON-FASTING) the results section. HC CBC,PLT & AUTO DIFF Routine 02/06/2022 12:21 Psoriatic arth ritis PM EDT HC ESR-SEDIMENTATION Routine 02/06/2022 12:21 Psoriatic arthri tis Results for this RATE, BLOOD PM EDT procedure are i n the results section. XR CHEST PA AND Routine 02/06/2022 11:48 Psoriatic arthritis R esults for this LATERAL AM EDT procedure are i n the results section. from Last 3 Months Results (ABNORMAL) CRP, acute inflammation (02/06/2022 12:21 PM EDT) athologist Signature CRP 5.2 (H) <=4.9 mg/L [facility] Specimen Anatomical Collection Method Collection Time Receive d Time (Source) Location / / Volume Laterality Blood 02/06/2022 12:21 02/06/2022 PM EDT 12:33 PM EDT Resulting Agency Comment Spec In Lab Monica Flores MD CHEMISTRY ORDERABLES Performing Organization Address City/State/[place] [address] (ABNORMAL) Hemogram (02/06/2022 12:21 PM EDT) Analysis Performed At Patho logist Time Signature WBC 6.7 4.0 - 9.5 [facility] x10(3)/[facility] LABORATORY RBC 4.72 4.58 - [facility] 5.54 [facility] x10(6)/[facility] LABORATORY Hemoglobin 14.4 13.7 - [facility] 16.[facility] g/dL [facility] Hematocrit 42.6 40.5 - [facility] % [facility] MCV 90.3 82.9 - [facility] 93.1 [facility] MCH 30.5 27.5 - [facility] 32.1 pg [facility] MCHC 33.8 32.0 - [facility] 35.7 g/dL [facility] Platelets 298 145 - 357 [facility] x10(3)/[facility] LABORATORY RDWSD 46.9 (H) 36.0 - [facility] 45.0 [facility] LABORATORY RDWCV 14.2 (H) 11.4 - [facility] 13.8 % [facility] MPV 9.4 7.6 - 12.9 [facility] LABORATORY nRBC % Auto 0.0 % [facility] nRBC Abs Auto 0.000 0.000 - [facility] 0.000 [facility] x10(3)[facility] LABORATORY Specimen Anatomical Collection Method Collection Time Receive d Time (Source) Location / / Volume Laterality Blood 02/06/2022 12:21 02/06/2022 PM EDT 12:33 PM EDT Resulting Agency Comment Spec In Lab Richard Tian MD HEMATOLOGY ORDERABLES Performing Organization Address City/State/[place] [address] Differential, Automated (02/06/2022 12:21 PM EDT) P athologist Signature Neutrophils % 63.7 % [facility] Neutr Abs (ANC) 4.28 1.70 - [facility] 6.10 [facility] x10(3)/[facility] LABORATORY Lymphocytes % 20.2 % [facility] Lymphocytes Abs 1.4 0.9 - 3.2 [facility] x10(3)/[facility] LABORATORY Monocytes % 12.9 % [facility] Monocyte Abs 0.9 0.3 - 0.9 [facility] x10(3)/[facility] LABORATORY Eosinophils % 2.4 % [facility] Eosinophils Abs 0.2 0.0 - 0.4 [facility] x10(3)/[facility] LABORATORY Basophils % 0.7 % [facility] Basophils Abs 0.0 0.0 - 0.1 [facility] x10(3)/[facility] LABORATORY Immature Gran % 0.10 % [facility] Comment: Immature granulocytes(IG's)percentage an d absolute count will include metamyelocytes, myelocytes, and promyelo cytes. Blood smears from CBCs yielding IG's will be scanned manually for concor dance. If this scan disagrees with the automated IG or if promyelocytes are not ed, a manual differential will be performed. Wanda Gran Abs 0.01 0.00 - 0.04 x10(3)/[facility] Specimen Anatomical Collection Method Collection Time Receive d Time (Source) Location / / Volume Laterality Blood 02/06/2022 12:21 02/06/2022 PM EDT 12:33 PM EDT Resulting Agency Comment Spec In Lab Richard Tian MD HEMATOLOGY ORDERABLES Performing Organization Address City/State/[place] [address] Sedimentation rate (02/06/2022 12:21 PM EDT) P athologist Signature Sed Rate 26 3 - 46 [facility] mm/hr [facility] Comment: Effective August 27, 2019 new capillar y photometric technology has resulted in a change in reference ranges. It is r ecommended that each ESR result be reviewed with its own age appropriate re ference range. Specimen Anatomical Collection Method Collection Time Receive d Time (Source) Location / / Volume Laterality Blood 02/06/2022 12:21 02/06/2022 PM EDT 12:33 PM EDT Resulting Agency Comment Spec In Lab Eusebio Alvarado MD HEMATOLOGY ORDERABLES Performing Organization Address City/State/[place] [address] (ABNORMAL) Comprehensive metabolic panel (non-fasting) (02/06/2022 12:21 PM EDT) P athologist Signature Glucose Lvl 120 65 - 199 [facility] mg/dL [facility] Comment: Diabetes: >=200 mg/dL plus symp toms BUN 19 10 - 20 mg/dL [facility] Creatinine 0.93 0.80 - 1.50 mg/dL [facility] Sodium 137 135 - 145 mmol/L [facility] Potassium 3.4 (L) 3.5 - 5.0 mmol/L [facility] Comment: Please note: ??Patients with WBC >100,00 0 may have falsely elevated Potassium levels. ??For accurate Potassium quantif ication in these patients send serum separator tube (gold top) for subsequent determinations. ??Contact the Clinical Chemistry Laboratory if there are any qu estions. Chloride 101 98 - 107 mmol/L [facility] CO2 25 22 - 31 mmol/L [facility] Anion Gap 11 5 - 15 mmol/L [facility] Calcium 9.2 8.5 - 10.5 mg/dL [facility] Total Protein 7.0 6.1 - 8.0 g/dL [facility] Albumin 4.1 3.2 - 5.2 g/dL [facility] AST 22 0 - 39 unit/L [facility] ALT 16 0 - 55 unit/L [facility] Alk Phos 109 40 - 130 unit/L [facility] Total Bilirubin 0.3 0.2 - 1.3 mg/dL [facility] Estimated GFR 80 >=60 mL/min/1.73 m?? [facility] Comment: This patient? s estimated glomerular filtration rate (eGFR) is between 80 mL/min/1.73 m2 (patients with less muscl e mass per kg body weight) and 93 mL/min/1.73 m2 (patients with more muscl e mass per kg body weight) as determined by the CKD-EPI equation. Asse ssment of eGFR is not appropriate when creatinine concentrations are rapidly ch anging. For clinical decisions where creatinine clearance will affect therapy , a 24-hour urine creatinine clearance may be advised. Assignment of CKD stage 1 - 5 for patien ts with an eGFR near the transition point between stages may be based on cli nical assessment of muscle mass and symptoms in addition to eGFR. Specimen Anatomical Collection Method Collection Time Receive d Time (Source) Location / / Volume Laterality Blood 02/06/2022 12:21 02/06/2022 PM EDT 12:33 PM EDT Resulting Agency Comment Spec In Lab Helen Wharton DO CHEMISTRY ORDERABLES Performing Organization Address City/State/ZIP Code Phon e Number [place] [id number] [address] XR Chest PA & Lateral (Generic) (02/06/2022 11:48 AM EDT) Anatomical Region Laterality Modality Chest N/A Digital Radiography Specimen (Source) Anatomical Location Collection Method / Collectio n Time Received Time / Laterality Volume Impressions 02/06/2022 11:50 AM EDT No acute process Thank you for letting us participate in the care of this patient. ??If you are a health care provider and have any questi ons regarding this report, please contact the number below. ??For patients who have questions please contact the health palliative care nurse that requested your imaging first. ? Electronically signed by: Jose Kinney MD , [facility] ([phone]), at 02/06/2022 11:50 AM Narrative 02/06/2022 11:50 AM EDT EXAMINATION: XR CHEST PA AND LATERAL (GENERIC) CLINICAL HISTORY: Cough, patient on meth otrexate TECHNIQUE: PA and lateral views of the chest COMPARISON: None FINDINGS: There is no consolidation, pulmonary chacorta ma, pneumothorax, or pleural effusion. Cardiomediastinal silhouette is within n ormal limits. Procedure Note Jose Kinney MD - 02/06/2022Formatting o f this note might be different from the original. EXAMINATION: XR CHEST PA AND LATERAL (GE NERIC) CLINICAL HISTORY: Cough, patient on meth otrexate TECHNIQUE: PA and lateral views of the chest COMPARISON: None FINDINGS: There is no consolidation, pulmonary chacorta ma, pneumothorax, or pleural effusion. Cardiomediastinal silhouette is within n ormal limits. IMPRESSION No acute process Thank you for letting us participate in the care of this patient. If you are a health care provider and have any questi ons regarding this report, please contact the number below. For patients w ho have questions please contact the health palliative care nurse that requested your imaging first. Helen Wharton DO IMG DX ORDERABLES from Last 3 Months Insurance Payer Benefit Plan / Subscriber ID Effective Dates Phone Addre ss Type Group MEDICARE MEDICARE PART A [id number] 2008-Present [phone] [id number] [place] [id number] Guarantor Name Account Type Relation to Date of Phone Bill ing Patient Address Mack Charles Personal/Family Self [address] (Home) [place] [address] Care Teams Seafood Manager Relationship Specialty Start Date End Date Priscilla Moura MD PCP - General Family Medicine 05/05/20 [address] [place] [address]
--- OUTSIDE RECORDS SUMMARY | 2022-05-05 01:21 | XMS_ITS | Encounter Summary ---
:1945 Demographics Home Phone Preferred Language Unknown Marital Status Unknown Latter-Day Affiliation Unknown Race Unknown Ethnic Group Unknown Author Organization [facility] Address [address] [place] [address] Care Team Providers Name Role Phone Unavailable Primary Care Provider Unavailable Encounter Details Date Type Department Care Team Description 06/07/2020 Lab Requisition [facility] Outr Resulting Lab, Pathology & Laboratory Provider [facility] [address] [place] [address] Social History Tobacco Use Types Packs/Day Years Used Date Never Assessed Sex Assigned at Date Recorded Not on file documented as of this encounter Plan of Treatment Not on filedocumented as of this encounter Procedures Procedure Name Priority Date/Time Associated Diagnosis Comme nts HOLD SST Today 06/07/2020 10:30 Results for this EDT procedure are i n the results section. HEPATITIS C AB W Today 06/07/2020 10:30 Results for this REFLEX TO HCV RNA EDT procedure are in BY PCR the results section. HEPATITIS B SURFACE Today 06/07/2020 10:30 Resu lts for this ANTIGEN EDT procedure are i n the results section. documented in this encounter Results HOLD SST (06/07/2020 10:30 EDT) Pathologist Sig nature Hold Hold [facility] Specimen Blood - Venous blood (substance) Performing Organization Address [facility]/ZIP Code Phon e Number [facility] [address] [place] [address] SERVICES HEPATITIS B SURFACE ANTIGEN (06/07/2020 10:30 EDT) Pathologist Sig nature Hep B Surface Ag Negative Negative [facility] SERVICES Specimen Blood - Venous blood (substance) Performing Organization Address [facility]/ZIP Code Phon e Number [facility] [address] [place] [address] SERVICES HEPATITIS C AB W REFLEX TO HCV RNA BY PCR (06/07/2020 10:30 EDT) Pathologist Sig nature Hep C Antibody Negative Negative [facility] ORY SERVICES Specimen Blood - Venous blood (substance) Performing Organization Address City/[facility]/ZIP [facility] Phon e Number [facility] [address] [place] [address] SERVICES documented in this encounter Visit Diagnoses Not on filedocumented in this encounter
--- OUTSIDE RECORDS SUMMARY | 2022-05-05 01:21 | XMS_ITS | Encounter Summary ---
:1945 Author Organization [place] [address] Care Team Providers Name Role Phone Priscilla Moura MD Primary Care Provider Encounter Details Date Type Department Care Team Description 04/29/2021 Telephone [place]ology [place] [facility] [place] [address] Social History Tobacco Use Types Packs/Day Years Used Date Former Smoker Cigarettes Smokeless Tobacco: Never Used Alcohol Use Standard Drinks/Week Comments Yes 0 (1 standard drink = 0.6 oz pure alcoho l) Alcohol Habits Answer Date Recorded How often do you have a drink containing 4 or more times a w [place] 06/02/2020 alcohol? How many drinks containing alcohol do you have Not asked on a typical day when you are drinking? How often do you have six or more drinks on one Not asked occasion? Comment: Not asked Sex Assigned at Date Recorded Not on file documented as of this encounter Miscellaneous Notes Telephone Encounter - Latia hJa - 04/29/2021 1:30 PM EDT VM left with pt to cb and book follow up with Dr. Tian - provider requests to book 05/30 at 2 documented in this encounter Plan of Treatment Upcoming Encounters Date Type Specialty Care Team Description 05/09/2022 Office Visit Rheumatology Alexandro Tian nd, MD [place], [place] [address] (Wo rk) documented as of this encounter Visit Diagnoses Not on filedocumented in this encounter Care Teams Client Professional Relationship Specialty Start Date End Date Priscilla Moura MD PCP - General Family Medicine 05/05/20 [address] [place] [address] documented as of this encounter
--- OUTSIDE RECORDS SUMMARY | 2022-05-05 01:21 | XMS_ITS | Encounter Summary ---
:1945 Author Organization [facility] [place] [address] Care Team Providers Name Role Phone Priscilla Moura MD Primary Care Provider Reason for Visit Reason Onset Date Comments Medication Refill 03/03/2021 Encounter Details Date Type Department Care Team Description 03/03/2021 Refill [place] [facility] Tian, Psoriatic arthritis [facility] [place] [phone] [facility] [phone] RHEUMATOLOGY [place]P [place], [place] [address] (Wo rk) Social History Tobacco Use Types Packs/Day Years Used Date Former Smoker Cigarettes Smokeless Tobacco: Never Used Alcohol Use Standard Drinks/Week Comments Yes 0 (1 standard drink = 0.6 oz pure alcoho l) Alcohol Habits Answer Date Recorded How often do you have a drink containing 4 or more times a w [place] 06/02/2020 alcohol? How many drinks containing alcohol [...] Office Visit Rheumatology Alexandro Tian nd, MD [place], [place] [address] (Wo rk) documented as of this encounter Visit Diagnoses Diagnosis Psoriatic arthritis Psoriatic arthropathy documented in this encounter Care Teams Client Experience Consultant Relationship Specialty Start Date End Date Priscilla Moura MD PCP - General Family Medicine 05/05/20 [address] [place] [address] documented as of this encounter
--- OUTSIDE RECORDS SUMMARY | 2022-05-05 01:21 | XMS_ITS | Encounter Summary ---
:1945 Author Organization [facility] [place] [address] Care Team Providers Name Role Phone Priscilla Moura MD Primary Care Provider Encounter Details Date Type Department Care Team Description 06/18/2020 Telephone Rheumatology [place] [facility] [place] Tian MD [facility] [place] [phone] RHEUMATOLOGY DEPT [phone] [place], [place] [address] (Wo rk) Social History Tobacco Use Types Packs/Day Years Used Date Former Smoker Cigarettes Smokeless Tobacco: Never Used Alcohol Use Standard Drinks/Week Comments Yes 0 (1 standard drink = 0.6 oz pure alcoho l) Alcohol Habits Answer Date Recorded How often do you have a drink containing 4 or more times a w [place] 06/02/2020 alcohol? How many drinks containing alcohol [...] Office Visit Rheumatology Alexandro Tian nd, MD [place], [place] [address] (Wo rk) documented as of this encounter Visit Diagnoses Diagnosis Psoriatic arthritis Psoriatic arthropathy documented in this encounter Care Teams Regional Branch Manager Relationship Specialty Start Date End Date Priscilla Moura MD PCP - General Family Medicine 05/05/20 [address] [place], [place] [address] documented as of this encounter
--- OUTSIDE RECORDS SUMMARY | 2022-05-05 01:21 | XMS_ITS | Encounter Summary ---
:1945 Author Organization [facility] [place] [address] Care Team Providers Name Role Phone Priscilla Moura MD Primary Care Provider Reason for Visit Reason Onset Date Comments Labs Only 06/03/2020 Encounter Details Date Type Department Care Team Description 06/03/2020 Telephone Rheumatology [place] [facility] [address] Social History Tobacco Use Types Packs/Day Years Used Date Former Smoker Cigarettes Smokeless Tobacco: Never Used Alcohol Use Standard Drinks/Week Comments Yes 0 (1 standard drink = 0.6 oz pure alcoho l) Alcohol Habits Answer Date Recorded How often do you have a drink containing 4 or more times a w [place] 06/02/2020 alcohol? How many drinks containing alcohol do you have Not asked on a typical day when you are drinking? How often do you have six or more drinks on one Not asked occasion? Comment: Not asked Sex Assigned at Date Recorded Not on file documented as of this encounter Miscellaneous Notes Telephone Encounter - Roge Still RN - 06/03/2020 12:34 PM EDT Pt called concerned if he was suppose to fast before having labs done. RTC to pt and let Mack know that there was no need to fast. Lab request was faxed to [facility]. documented in this encounter Plan of Treatment Upcoming Encounters Date Type Specialty Care Team Description 05/09/2022 Office Visit Rheumatology Alexandro Tian nd, MD [place], [place] [address] (Wo rk) documented as of this encounter Visit Diagnoses Not on filedocumented in this encounter Care Teams Live Source Operator Relationship Specialty Start Date End Date Priscilla Moura MD PCP - General Family Medicine 05/05/20 [address] [place] [address] documented as of this encounter
--- OUTSIDE RECORDS SUMMARY | 2022-05-05 01:21 | XMS_ITS | Encounter Summary ---
:1945 Author Organization [facility] [place] [address] Care Team Providers Name Role Phone Priscilla Moura MD Primary Care Provider Reason for Visit Reason Onset Date Comments Medication Refill 01/24/2022 Encounter Details Date Type Department Care Team Description 01/24/2022 Refill Rheumatology at [facility] Richard Tian, Psoriatic arthritis [facility] [place] [address] [facility] [phone] RHEUMATOLOGY [place], [place] [address] (Wo rk) Social History Tobacco Use Types Packs/Day Years Used Date Former Smoker Cigarettes Smokeless Tobacco: Never Used Alcohol Use Standard Drinks/Week Comments Yes 0 (1 standard drink = 0.6 oz pure alcoho l) Alcohol Habits Answer Date Recorded How often do you have a drink containing 4 or more times a w [place] 06/02/2020 alcohol? How many drinks containing alcohol [...] Office Visit Rheumatology Alexandro Tian nd, MD [place], [place] [address] (Wo rk) documented as of this encounter Visit Diagnoses Diagnosis Psoriatic arthritis Psoriatic arthropathy documented in this encounter Care Teams Manager Practice Relationship Specialty Start Date End Date Priscilla Moura MD PCP - General Family Medicine 05/05/20 [address] [place] [address] documented as of this encounter
--- OUTSIDE RECORDS SUMMARY | 2022-05-05 01:21 | XMS_ITS | Encounter Summary ---
:1945 Author Organization [facility] [place] [address] Care Team Providers Name Role Phone Priscilla oMura MD Primary Care Provider Reason for Visit Reason Onset Date Comments Medication Refill 10/05/2021 Encounter Details Date Type Department Care Team Description 10/05/2021 Refill Rheumatology at [facility] Richard Tian, Psoriatic arthritis [facility] [place] [address] [facility] [phone] RHEUMATOLOGY [place], [place] [address] (Wo rk) Social History Tobacco Use Types Packs/Day Years Used Date Former Smoker Cigarettes Smokeless Tobacco: Never Used Alcohol Use Standard Drinks/Week Comments Yes 0 (1 standard drink = 0.6 oz pure alcoho l) Alcohol Habits Answer Date Recorded How often do you have a drink containing 4 or more times a w [place] 06/02/2020 alcohol? How many drinks containing alcohol [...] Office Visit Rheumatology Alexandro Tian nd, MD [place], [place] [address] (Wo rk) documented as of this encounter Visit Diagnoses Diagnosis Psoriatic arthritis Psoriatic arthropathy documented in this encounter Care Teams Manager Reimbursement Relationship Specialty Start Date End Date Priscilla Moura MD PCP - General Family Medicine 05/05/20 [address] [place] [address] documented as of this encounter
--- OUTSIDE RECORDS SUMMARY | 2022-05-05 01:21 | XMS_ITS | Encounter Summary ---
:1945 Author Organization [facility] [place] [address] Care Team Providers Name Role Phone Priscilla Moura MD Primary Care Provider Encounter Details Date Type Department Care Team Description 09/30/2020 Office Visit Rheumatology at [facility] Jaylan, Psoriatic arthritis [facility] [place] [address] RHEUMATOLOGY [place], [place] [address] Social History Tobacco Use Types Packs/Day Years Used Date Former Smoker Cigarettes Smokeless Tobacco: Never Used Alcohol Use Standard Drinks/Week Comments Yes 0 (1 standard drink = 0.6 oz pure alcoho l) Alcohol Habits Answer Date Recorded How often do you have a drink containing 4 or more times a w [place] 06/02/2020 alcohol? How many drinks [...] Sign Reading Time Taken Comments Blood Pressure 125/66 09/30/2020 11:30 AM EST Pulse 68 09/30/2020 11:30 AM EST Temperature 36.4 ??C (97.5 ??F) 09/30/2020 11:30 AM EST Respiratory Rate - - Oxygen Saturation 100% 09/30/2020 11:30 AM EST Inhaled Oxygen Concentration - - Weight 81.2 kg (179 lb) 09/30/2020 11:30 AM EST Height 167.6 cm (5' 6) 09/30/2020 11:30 AM EST Body Mass Index 28.89 09/30/2020 11:30 AM EST documented in this encounter Progress Notes Jaylan Brocarlos - 09/30/2020 11:45 AM EST Rheumatology Outpatient Follow Up Note [...] and Allergies: Reviewed in eDH Interval History: Patient reports feeling great. Has a skin disease has almost disappeared now and he is not having any active joint symptoms. No recent history of enthesitis, dactylitis or any red, hot or swollen joints. Minimal morning stiffness. He has been tolerating methotrexate pretty well. He is however taking split dosing of methotrexate 24 hours apart. Instructed him to make the split dosing 12 hours apart weekly and to continue with the daily folic acid. He has developed some itchy pustular lesions on the right forearm for last couple of weeks. He has been scratching it a lot. Skin looks dry. Encouraged him to use liberal moisturization and cut his nails to make sure that the lesions do not get infected. ROS (positives in bold): Gen: No fevers, no chills, no night sweats Pulm: No SOB and no cough CV: No chest pain Abd: No abd pain, no nausea, no vomiting, no diarrhea MSK: See HPI Physical exam: BP 125/66 Pulse 68 Temp 36.4 ??C (97.5 ??F) (Temporal) Ht 167.6 cm (5' 6) Wt 81.2 kg (179 lb) SpO2 100% BMI 28.89 kg/m?? Gen: Well appearing, alert and oriented x 3, NAD HEENT: Moist mucous membranes, no oral ulcers, normal sclerae Lymph: No cervical LAD Heart: Regular rate, no murmurs, rubs or gallops Lungs: Clear to auscultation b/l Abd: Soft, NT/ND, bowel sounds + Skin: Warm and dry, faint outline of previous psoriatic plaque on the anterior abdominal wall Joints: Normal ROM throughout the upper and lower extremity joints, no synovitis or tenderness in the hands, bilateral Rhiannon's and Heberden's, good range of motion and wrists,elbows, shoulders and knees. Labs/Studies: His last lab work from 07/19/20 shows normal AST/ALT and CBC. Mildly elevated CRP at 2.5. (0-0.3) and ESR of 33. (1-20). Assessment: Mack Charles is a 75 y.o. male with the PMH of psoriasis, PsA, HTN and anxiety who is presenting for follow up of his psoriatic arthritis. He has had consistent improvement of the skin and joint disease on methotrexate and he has been tolerating the medication well. He currently has no evidence of enthesitis, dactylitis or synovitis on examination. Psoriasis skin disease also has significantly improved and almost resolved now. Physical examination does not show any evidence of synovitis in the hands. Recent labs done at outside facility shows normal liver enzymes. Plan: -Continue methotrexate at 20 milligrams weekly, split dosing to be taken 12 hours apart, along with daily folic acid. -Repeat CBC and CMP in 3 months. External orders given. -Continue Voltaren gel as needed on knees and feet. -Per the partner and the patient, patient has had pneumonia vaccine but not the shingles vaccine. Heis planning to get shingrix at [facility]. Patient was seen and discussed with Dr. Cortes. Richard Tian MD Rheumatology Fellow Pager: [phone] Erasmo Cortes MD - 09/30/2020 11:45 AM EST ATTENDING ADDENDUM The patient's history was reviewed, and I interviewed and examined the patient with Dr. Tian. I agree with his summary, findings, and plan. Erasmo Cortes MD Staff Stopboard Assembler documented in this encounter Plan of Treatment Upcoming Encounters Date Type Specialty Care Team Description 05/09/2022 Office Visit Rheumatology Alexandro Tian nd, MD [place] [phone] (Wo rk) documented as of this encounter Visit Diagnoses Diagnosis Psoriatic arthritis Psoriatic arthropathy documented in this encounter Care Teams Otr Van Cdl Truck Driver Relationship Specialty Start Date End Date Priscilla Moura MD PCP - General Family Medicine 05/05/20 [address] [place] [address] documented as of this encounter
--- OUTSIDE RECORDS SUMMARY | 2022-05-05 01:21 | XMS_ITS | Encounter Summary ---
:1945 Author Organization [facility] [place] [address] Care Team Providers Name Role Phone Priscilla Moura MD Primary Care Provider Reason for Visit Reason Onset Date Comments Medication Refill 05/30/2021 Encounter Details Date Type Department Care Team Description 05/30/2021 Refill Rheumatology at [facility] Jaylan, [place], Psoriatic arthritis [facility] [place] [address] [facility] [phone] RHEUMATOLOGY [place], [place] [address] (Wo rk) Social History Tobacco Use Types Packs/Day Years Used Date Former Smoker Cigarettes Smokeless Tobacco: Never Used Alcohol Use Standard Drinks/Week Comments Yes 0 (1 standard drink = 0.6 oz pure alcoho l) Alcohol Habits Answer Date Recorded How often do you have a drink containing 4 or more times a w [place] 06/02/2020 alcohol? How many drinks containing alcohol do you have Not asked on a typical day when you are drinking? How often do you have six or more drinks on one Not asked occasion? Comment: Not asked Sex Assigned at Date Recorded Not on file documented as of this encounter Miscellaneous Notes Telephone Encounter - Lissette Hough LPN - 05/31/2021 8:10 AM EDT Requested Prescriptions Pending Prescriptions Disp Refills ??? metHOTREXate 2.5 mg Tablet 32 tablet 3 Sig: Take 8 tablets (20 mg) by mouth once a week. Last office visit: 12/09/2020 Last refill: 04/29/2021 documented in this encounter Plan of Treatment Upcoming Encounters Date Type Specialty Care Team Description 05/09/2022 Office Visit Rheumatology Alexandro Tian nd, MD [place], [place] [address] (Wo rk) documented as of this encounter Visit Diagnoses Diagnosis Psoriatic arthritis Psoriatic arthropathy documented in this encounter Care Teams Caster Operator Relationship Specialty Start Date End Date Priscilla Moura MD PCP - General Family Medicine 05/05/20 [address] [place] [address] documented as of this encounter
--- OUTSIDE RECORDS SUMMARY | 2022-05-05 01:21 | XMS_ITS | Encounter Summary ---
:1945 Author Organization [facility] [place] [address] Care Team Providers Name Role Phone Priscilla Moura MD Primary Care Provider Encounter Details Date Type Department Care Team Description 06/17/2021 Telephone Rheumatology at [facility] Richard Tian MD [facility] [place] [phone] RHEUMATOLOGY DEPT [phone] [place], [place] [address] (Wo rk) Social History Tobacco Use Types Packs/Day Years Used Date Former Smoker Cigarettes Smokeless Tobacco: Never Used Alcohol Use Standard Drinks/Week Comments Yes 0 (1 standard drink = 0.6 oz pure alcoho l) Alcohol Habits Answer Date Recorded How often do you have a drink containing 4 or more times a w [place] 06/02/2020 alcohol? How many drinks containing alcohol do you have Not asked on a typical day when you are drinking? How often do you have six or more drinks on one Not asked occasion? Comment: Not asked Sex Assigned at Date Recorded Not on file documented as of this encounter Miscellaneous Notes Telephone Encounter - Richard Tian - 06/17/2021 11:31 AM EDT Noted mildly elevated CRP on the lab tests. Called and discussed with the patient. He feels fine without any recent joint or skin flareup. No significant morning stiffness. Encouraged to keep an eye onhis symptoms. Will have his labs repeated a week before his visit with me in July. [facility]. documented in this encounter Plan of Treatment Upcoming Encounters Date Type Specialty Care Team Description 05/09/2022 Office Visit Rheumatology Alexandro Tian nd, MD [place] [address] (Wo rk) Scheduled Orders Name Type Priority Associated Diagnoses Order S chedule CBC (with Diff) Lab Routine Psoriatic arthritis Expec sara: 06/17/2021, Expires: 06/17/2022 Sedimentation rate Lab Routine Psoriatic arthritis Ex pected: 06/17/2021, Expires: 06/17/2022 documented as of this encounter Results (ABNORMAL) Comprehensive metabolic panel (non-fasting) (02/06/2022 12:21 PM EDT) P athologist Signature Glucose Lvl 120 65 - 199 [facility] mg/dL [facility] Comment: Diabetes: >=200 mg/dL plus symp toms BUN 19 10 - 20 mg/dL [facility] Creatinine 0.93 0.80 - 1.50 mg/dL [facility] Sodium 137 135 - 145 mmol/L [facility] Potassium 3.4 (L) 3.5 - 5.0 mmol/L [facility] Comment: Please note: ??Patients with WBC >100,00 0 may have falsely elevated Potassium levels. ??For accurate Potassium quantif ication in these patients send serum separator tube (gold top) for subsequent determinations. ??Contact the Clinical Chemistry Laboratory if there are any qu estions. Chloride 101 98 - 107 mmol/L [facility] CO2 25 22 - 31 mmol/L [facility] Anion Gap 11 5 - 15 mmol/L [facility] Calcium 9.2 8.5 - 10.5 mg/dL [facility] Total Protein 7.0 6.1 - 8.0 g/dL [facility] Albumin 4.1 3.2 - 5.2 g/dL [facility] AST 22 0 - 39 unit/L [facility] ALT 16 0 - 55 unit/L [facility] Alk Phos 109 40 - 130 unit/L [facility] Total Bilirubin 0.3 0.2 - 1.3 mg/dL [facility] Estimated GFR 80 >=60 mL/min/1.73 m?? [facility] Comment: This patient? s estimated glomerular [...] Organization Address City/State/[place] [address] documented in this encounter Visit Diagnoses Diagnosis Psoriatic arthritis Psoriatic arthropathy documented in this encounter Care Teams Sewing Machines Salesperson Relationship Specialty Start Date End Date Priscilla Moura MD PCP - General Family Medicine 05/05/20 [address] [place] [address] documented as of this encounter
--- OUTSIDE RECORDS SUMMARY | 2022-05-05 01:21 | XMS_ITS | Encounter Summary ---
:1945 Demographics Home Phone Preferred Language Unknown Marital Status Unknown Sabianist Affiliation Unknown Race Unknown Ethnic Group Unknown Author Organization [facility] Address [address] [place] [address] Care Team Providers Name Role Phone Unavailable Primary Care Provider Unavailable Encounter Details Date Type Department Care Team Description 01/21/2020 Lab Requisition [facility] Outr Resulting Lab, Pathology & Laboratory Provider [facility] [address], [place] [address] Social History Tobacco Use Types Packs/Day Years Used Date Never Assessed Sex Assigned at Date Recorded Not on file documented as of this encounter Plan of Treatment Not on filedocumented as of this encounter Procedures Procedure Name Priority Date/Time Associated Comments Diagnosis DO NOT ORDER Today 01/20/2020 15:45 Results for this STANDALONE - ANA ROSA EDT procedure a re in COVID TESTING the results section. COVID-19 TESTING Routine 01/20/2020 15:45 Results for this EDT procedure are i n the results section. documented in this encounter Results DO NOT ORDER STANDALONE - ANA ROSA COVID TESTING (01/20/2020 15:45 EDT) COVID-19 rt-PCR Not Detected Not Detected [place] Result Comment: DEPARTMENT OF This test has not been FDA c leared or approved. This test has been authorized by FDA under an EUA for use by authorized laboratories. ??This test has been authorized only for the detection of nucleic ac [facility] id from SARS-CoV-2, not for any other viruses or pathogens. ??This test is only authorized for the duration of the declaration that circumstances exist justifying the authorization of emergency use of i n vitro diagnostic tests for detection and/or diagnosis of COVID-19 under Section 564(b)(1) of the Act, 21 U.S.C. ?? 360bbb-3(b)(1), unless the authorization is terminated or revoked sooner. ??Factsheet s for healthcare providers: ??https://www.fda.gov/media/983532/download Factsheets for patients: https://www.fda.gov/media/535989/download Negative results do not prec lude infection with SARS-CoV-2 virus, and should not be the sole basis of a patient management decision. Specimen Swab - Entire nasopharynx (body structur e) Performing Organization Address City/[facility] Code Phon e Number [facility] [address] [place], [place] [address] LABORATORY COVID-19 TESTING (01/20/2020 15:45 EDT) COVID-19 rt-PCR Not Detected Not Detected [place] Result Comment: DEPARTMENT OF This test has not been FDA c leared or approved. This test has been authorized by FDA under an EUA for use by authorized laboratories. ??This test has been authorized only for the detection of nucleic ac [facility] id from SARS-CoV-2, not for any other viruses or pathogens. ??This test is only authorized for the duration of the declaration that circumstances exist justifying the authorization of emergency use of i n vitro diagnostic tests for detection and/or diagnosis of COVID-19 under Section 564(b)(1) of the Act, 21 U.S.C. ?? 360bbb-3(b)(1), unless the authorization is terminated or revoked sooner. ??Factsheet s for healthcare providers: ??https://www.fda.gov/media/471441/download Factsheets for patients: https://www.fda.gov/media/912777/download Negative results do not prec lude infection with SARS-CoV-2 virus, and should not be the sole basis of a patient management decision. Performing Lab [facility] LABORATORY SERVICES Specimen Swab - Entire nasopharynx (body structur e) Performing Organization Address City/[facility] Code Phon e Number [facility] [address] [place] [address] SERVICES [facility] [address] [place], [place] [address] LABORATORY documented in this encounter Visit Diagnoses Not on filedocumented in this encounter
--- OUTSIDE RECORDS SUMMARY | 2022-05-05 01:21 | XMS_ITS | Encounter Summary ---
:1945 Author Organization [facility] [place] [address] Care Team Providers Name Role Phone Priscilla Moura MD Primary Care Provider Encounter Details Date Type Department Care Team Description 08/20/2020 Telephone Rheumatology at [facility] [place] [address] Social History Tobacco Use Types Packs/Day Years Used Date Former Smoker Cigarettes Smokeless Tobacco: Never Used Alcohol Use Standard Drinks/Week Comments Yes 0 (1 standard drink = 0.6 oz pure alcoho l) Alcohol Habits Answer Date Recorded How often do you have a drink containing 4 or more times a w [place] 06/02/2020 alcohol? How many drinks containing alcohol do you have Not asked on a typical day when you are drinking? How often do you have six or more drinks on one Not asked occasion? Comment: Not asked Sex Assigned at Date Recorded Not on file documented as of this encounter Miscellaneous Notes Telephone Encounter - Jerry Sexton RN - 08/20/2020 12:53 PM EST Call received from Mack stating he was returning call to Dr. Tian. documented in this encounter Plan of Treatment Upcoming Encounters Date Type Specialty Care Team Description 05/09/2022 Office Visit Rheumatology Alexandro Tian nd, MD [place], [place] [address] (Wo rk) documented as of this encounter Visit Diagnoses Not on filedocumented in this encounter Care Teams Preschool Assistant Relationship Specialty Start Date End Date Priscilla Moura MD PCP - General Family Medicine 05/05/20 [address] [place] [address] documented as of this encounter
--- OUTSIDE RECORDS SUMMARY | 2022-05-05 01:21 | XMS_ITS | Encounter Summary ---
:1945 Author Organization [facility] [place] [address] Care Team Providers Name Role Phone Priscilla Moura MD Primary Care Provider Reason for Visit Reason Comments Follow-up Encounter Details Date Type Department Care Team Description 12/09/2020 [place] [facility] [place], Psoriatic arthritis [facility] [place] [address] RHEUMATOLOGY [place], [place] [address] Social History Tobacco Use Types Packs/Day Years Used Date Former Smoker Cigarettes Smokeless Tobacco: Never Used Alcohol Use Standard Drinks/Week Comments Yes 0 (1 standard drink = 0.6 oz pure alcoho l) Alcohol Habits Answer Date Recorded How often do you have a drink containing 4 or more times a w [place] 06/02/2020 alcohol? How many drinks containing alcohol do you have Not asked on a typical day when you are drinking? How often do you have six or more drinks on one Not asked occasion? Comment: Not asked Sex Assigned at Date Recorded Not on file documented as of this encounter Last Filed Vital Signs Vital Sign Reading Time Taken Comments Blood Pressure 131/73 12/09/2020 10:07 AM EDT Pulse 52 12/09/2020 10:07 AM EDT Temperature 36.3 ??C (97.4 ??F) 12/09/2020 10:07 AM EDT Respiratory Rate 16 12/09/2020 10:07 AM EDT Oxygen Saturation 99% 12/09/2020 10:07 AM EDT Inhaled Oxygen Concentration - - Weight 80.2 kg (176 lb 12.8 oz) 12/09/2020 10:07 AM wit h shoes EDT Height 168.9 cm (5' 6.5) 12/09/2020 10:07 AM EDT Body Mass Index 28.11 12/09/2020 10:07 AM EDT documented in this encounter Progress Notes Richard Tian - 12/09/2020 10:15 AM EDT Rheumatology Outpatient Follow Up Note PCP: Priscilla [...] Allergies: Reviewed in eDH Interval History: Patient doing significantly well. He has been exercising and walking without any difficulty. No recent flareup of his joint or skin disease. He has minimal morning stiffness. He has been tolerating 20 mg of methotrexate well. ROS (positives in bold): Gen: No fevers, no chills, no night sweats Pulm: No SOB and no cough CV: No chest pain Abd: No abd pain, no nausea, no vomiting, no diarrhea MSK: See HPI Physical exam: BP 131/73 Pulse 52 Temp 36.3 ??C (97.4 ??F) (Temporal) Resp 16 Ht 168.9 cm (5' 6.5) Wt 80.2 kg (176 lb 12.8 oz) Comment: with shoes SpO2 99% BMI 28.11 kg/m?? Gen: Well appearing, alert and oriented x 3, NAD HEENT: Moist mucous membranes, no oral ulcers, normal sclerae Heart: Regular rate, no murmurs, rubs or gallops Lungs: Clear to auscultation b/l Abd: Soft, NT/ND, bowel sounds + Skin: Warm and dry, Joints: Normal ROM throughout the upper and lower extremity joints, no synovitis or tenderness in the hands, bilateral Rhiannon's and Heberden's, good range of motion and wrists,elbows, shoulders and knees. Labs/Studies: Reviewed recent labs done on 12/03/2020 Assessment: Mack Charles is a 75 y.o. male with the PMH of psoriasis, PsA, HTN and anxiety who is presenting for follow up of his psoriatic arthritis. He has had consistent improvement of the skin and joint disease on methotrexate and he has been tolerating the medication well. He currently has no evidence of enthesitis, dactylitis or synovitis on examination. Physical examination does not show any evidence of synovitis in the hands or any rash. Recent labs done at outside facility shows normal liver enzymes and blood counts. Patient now wants to do a follow-up at 6 months. Advised him about the need for blood work-up every 3 months to which he is agreeable. Plan: -Continue methotrexate at 20 milligrams weekly, split dosing to be taken 12 hours apart, along with daily folic acid. -Repeat CBC and CMP in 3 months. External orders given. Follow-up in 6 months. Patient was seen and discussed with Dr. Cortes. Richard Tian MD Rheumatology Fellow Pager: [phone] Erasmo Cortes MD - 12/09/2020 10:15 AM EDT ATTENDING ADDENDUM The patient's history was reviewed, and I interviewed and examined the patient with Dr. Tian. I agree with his summary, findings, and plan. Erasmo Cortes MD Staff Director Internal Communications documented in this encounter Plan of Treatment Upcoming Encounters Date Type Specialty Care Team Description 05/09/2022 Office Visit Rheumatology Alexandro Tian nd, MD [place] [phone] (Wo rk) documented as of this encounter Visit Diagnoses Diagnosis Psoriatic arthritis Psoriatic arthropathy documented in this encounter Care Teams Quality Assurance Supervisor Chassis Relationship Specialty Start Date End Date Priscilla Moura MD PCP - General Family Medicine 05/05/20 [address] [place] [address] documented as of this encounter
--- OUTSIDE RECORDS SUMMARY | 2022-05-05 01:21 | XMS_ITS | Encounter Summary ---
:1945 Author Organization [facility] [place] [address] Care Team Providers Name Role Phone Priscilla Moura MD Primary Care Provider Encounter Details Date Type Department Care Team Description 05/31/2021 Orders Only Rheumatology at [facility] [place] Jaylan, Psoriatic arthritis [facility] [place] [address] [facility] [phone] DR RHEUMATOLOGY [place], [place] [address] Social History Tobacco Use Types Packs/Day Years Used Date Former Smoker Cigarettes Smokeless Tobacco: Never Used Alcohol Use Standard Drinks/Week Comments Yes 0 (1 standard drink = 0.6 oz pure alcoho l) Alcohol Habits Answer Date Recorded How often do you have a drink containing 4 or more times a w [place] 06/02/2020 alcohol? How many drinks containing alcohol [...] Office Visit Rheumatology Alexandro Tian nd, MD [place], [place] [address] (Wo rk) documented as of this encounter Results Sedimentation rate (02/06/2022 12:21 PM EDT) P athologist Signature Sed Rate 26 3 - 46 [facility] mm/hr [facility] Comment: Effective August 27, 2019 [...] Alvarado MD HEMATOLOGY ORDERABLES Performing Organization Address City/State/[facility] [place] [address] documented in this encounter Visit Diagnoses Diagnosis Psoriatic arthritis Psoriatic arthropathy documented in this encounter Care Teams Mining Analyst Relationship Specialty Start Date End Date Priscilla Moura MD PCP - General Family Medicine 05/05/20 [address] [place] [address] documented as of this encounter
--- OUTSIDE RECORDS SUMMARY | 2022-05-05 01:21 | XMS_ITS | Encounter Summary ---
:1945 Author Organization [facility] [place] [address] Care Team Providers Name Role Phone Priscilla Moura MD Primary Care Provider Encounter Details Date Type Department Care Team Description 02/06/2022 Hospital Encounter XRay at [facility] [place] Helen Wharton Psoriatic arthritis [address] [place] [address] Dr Cuevas, [facility] [id number] RHEUMATOLOGY DEP [place], [place] [address] Social History Tobacco Use Types Packs/Day Years Used Date Former Smoker Cigarettes Smokeless Tobacco: Never Used Alcohol Use Standard Drinks/Week Comments Yes 0 (1 standard drink = 0.6 oz pure alcoho l) Alcohol Habits Answer Date Recorded How often do you have a drink containing 4 or more times a w [place] 06/02/2020 alcohol? How many drinks containing alcohol do you have Not asked on a typical day when you are drinking? How often do you have six or more drinks on one Not asked occasion? Comment: Not asked Sex Assigned at Date Recorded Not on file documented as of this encounter Medications at Time of Discharge Medication Sig Dispensed Refills Start Date End Date metHOTREXate 2.5 mg Take 8 tablets (20 32 tablet 3 02/07/20 TabletIndications: Psoriatic mg) by mouth once arthritis a week. folic acid (Folvite) 1 mg Take 1 tablet by 90 tablet 3 01/16 TabletIndications: Psoriatic mouth daily. arthritis aspirin EC 81 mg Tablet, Take 81 mg by 0 Delayed Release (E.C.) mouth daily. diclofenac (VOLTAREN) 1 % Apply topically 3 100 g 3 05/2020 GelIndications: Psoriatic times daily as arthritis needed. citalopram (CeleXA) 20 mg TAKE 1 2 (ONE 0 020 Tablet HALF) TABLET BY MOUTH ONCE DAILY hydroCHLOROthiazide TAKE 1 TABLET BY 0 04/08/2020 (Hydrodiuril) 25 mg Tablet MOUTH ONCE DAILY losartan (Cozaar) 50 mg Take 25 mg by 0 0 Tablet mouth daily. NIFEdipine CC (Adalat CC) 30 TAKE 1 TABLET BY 0 0 05/12/2020 mg Tablet Sustained Release MOUTH ONCE DAILY potassium chloride ER TAKE 1 TABLET BY 0 03/17/20 20 (K-Dur/Klor-Con) 20 mEq Tab MOUTH ONCE DAILY Sust.Rel. Particle/Crystal zolpidem (AMBIEN) 10 mg TAKE 1 2 TO 1 0 0 Tablet TABLET BY MOUTH AT BEDTIME NEEDED FOR INSOMNIA documented as of this encounter Plan of Treatment Upcoming Encounters Date Type Specialty Care Team Description 05/09/2022 Office Visit Rheumatology Alexandro Tian nd, MD [place] [address] (Wo rk) documented as of this encounter Procedures Procedure Name Priority Date/Time Associated Diagnosis Comme nts XR CHEST PA AND Routine 02/06/2022 11:48 AM Psoriatic arthriti s Results for this LATERAL EDT procedure are i n the results section. documented in this encounter Results XR Chest PA & Lateral (Generic) (02/06/2022 [...] who have questions please contact the health personal care worker that requested your imaging first. ? Narrative 02/06/2022 11:50 AM EDT EXAMINATION: XR [...] ho have questions please contact the health personal care worker that requested your imaging first. Helen Wharton DO IMG DX ORDERABLES documented in this encounter Visit Diagnoses Diagnosis Psoriatic arthritis Psoriatic arthropathy documented in this encounter Care Teams Motor Vehicle Dispatcher Relationship Specialty Start Date End Date Priscilla Moura MD PCP - General Family Medicine 05/05/20 [address] [place] [address] documented as of this encounter
--- OUTSIDE RECORDS SUMMARY | 2022-05-05 01:21 | XMS_ITS | Encounter Summary ---
:1945 Author Organization [facility] [place] [address] Care Team Providers Name Role Phone Priscilla Moura MD Primary Care Provider Encounter Details Date Type Department Care Team Description 06/11/[address] [facility] [place] Tian [place] [facility] [place] [address] RHEUMATOLOGY DEPT [phone] [place], [place] [address] (Wo rk) Social History Tobacco Use Types Packs/Day Years Used Date Former Smoker Cigarettes Smokeless Tobacco: Never Used Alcohol Use Standard Drinks/Week Comments Yes 0 (1 standard drink = 0.6 oz pure alcoho l) Alcohol Habits Answer Date Recorded How often do you have a drink containing 4 or more times a w [place] 06/02/2020 alcohol? How many drinks containing alcohol do you have Not asked on a typical day when you are drinking? How often do you have six or more drinks on one Not asked occasion? Comment: Not asked Sex Assigned at Date Recorded Not on file documented as of this encounter Miscellaneous Notes Telephone Encounter - Richard Tian - 06/11/2020 1:42 PM EDT Benefits, risks and potential side effects of methotrexate were discussed including fatigue, mouth sores, nausea, hair thinning, liver and bone marrow effects requiring q 3 month labs to monitor for drug toxicity, rare allergic pulmonary reaction and, if appropriate, avoidance of . Alcohol intake should be limited. It takes 6-8 weeks for methotrexate to work. It was explained that this drug is taken once per WEEK, and daily folic acid starting a 1 mg per day can help counter the side effects. documented in this encounter Plan of Treatment Upcoming Encounters Date Type Specialty Care Team Description 05/09/2022 Office Visit Rheumatology Alexandro Tian nd, MD [place] [phone] (Wo rk) documented as of this encounter Visit Diagnoses Diagnosis Psoriatic arthritis Psoriatic arthropathy documented in this encounter Care Teams Recruitment Assistant Relationship Specialty Start Date End Date Priscilla Moura MD PCP - General Family Medicine 05/05/20 [address] [place] [address] documented as of this encounter
--- OUTSIDE RECORDS SUMMARY | 2022-05-05 01:21 | XMS_ITS | Encounter Summary ---
:1945 Author Organization [facility] [place] [address] Care Team Providers Name Role Phone Priscilla Moura MD Primary Care Provider Reason for Visit Reason Onset Date Comments Medication Refill 10/18/2020 Encounter Details Date Type Department Care Team Description 10/18/2020 Refill [place] [facility] [place] Roge Still, Psoriatic arthritis [facility] [place] [address] Social History Tobacco Use Types Packs/Day Years Used Date Former Smoker Cigarettes Smokeless Tobacco: Never Used Alcohol Use Standard Drinks/Week Comments Yes 0 (1 standard drink = 0.6 oz pure alcoho l) Alcohol Habits Answer Date Recorded How often do you have a drink containing 4 or more times a w [place] 06/02/2020 alcohol? How many drinks containing alcohol do you have Not asked on a typical day when you are drinking? How often do you have six or more drinks on one Not asked occasion? Comment: Not asked Sex Assigned at Date Recorded Not on file documented as of this encounter Miscellaneous Notes Telephone Encounter - Roge Still RN - 10/18/2020 3:45 PM EST RTC to Mack and he reports that he is suppose to take MTX 8 tabs by mouth weekly, and the refill that was sent is for 6 tabs weekly. It needs to be changed, he states that he is ok this week, but needsfor the next dose. documented in this encounter Plan of Treatment Upcoming Encounters Date Type Specialty Care Team Description 05/09/2022 Office Visit Rheumatology Alexandro Tian nd, MD [place], [place] [address] (Wo rk) documented as of this encounter Visit Diagnoses Diagnosis Psoriatic arthritis Psoriatic arthropathy documented in this encounter Care Teams [employer] Program Coordinator Relationship Specialty Start Date End Date Priscilla Moura MD PCP - General Family Medicine 05/05/20 [address] [place] [address] documented as of this encounter
--- OUTSIDE RECORDS SUMMARY | 2022-05-05 01:21 | XMS_ITS | Encounter Summary ---
:1945 Author Organization [facility] [place] [address] Care Team Providers Name Role Phone Priscilla Moura MD Primary Care Provider Encounter Details Date Type Department Care Team Description 08/08/2021 Office Visit Rheumatology at [facility] Jaylan, Psoriatic arthritis [facility] [place] [address] RHEUMATOLOGY [place], [place] [address] Social History Tobacco Use Types Packs/Day Years Used Date Former Smoker Cigarettes Smokeless Tobacco: Never Used Alcohol Use Standard Drinks/Week Comments Yes 0 (1 standard drink = 0.6 oz pure alcoho l) Alcohol Habits Answer Date Recorded How often do you have a drink containing 4 or more times a w [place] 06/02/2020 alcohol? How many drinks containing alcohol do you have Not asked on a typical day when you are drinking? How often do you have six or more drinks on one Not asked occasion? Comment: Not asked Sex Assigned at Date Recorded Not on file documented as of this encounter Last Filed Vital Signs Vital Sign Reading Time Taken Comments Blood Pressure 120/71 08/08/2021 10:18 AM EST Pulse 72 08/08/2021 10:18 AM EST Temperature 36.1 ??C (96.9 ??F) 08/08/2021 10:18 AM EST Respiratory Rate - - Oxygen Saturation 99% 08/08/2021 10:18 AM EST Inhaled Oxygen Concentration - - Weight 81.6 kg (180 lb) 08/08/2021 10:18 AM EST Height 168.9 cm (5' 6.5) 08/08/2021 10:18 AM EST Body Mass Index 28.62 08/08/2021 10:18 AM EST documented in this encounter Progress Notes Richard Tian - 08/08/2021 10:30 AM EST Rheumatology Outpatient Follow Up Note PCP: Priscilla Moura MD Mack Charles is a 76 y.o. male who we are seeing for [...] and Allergies: Reviewed in eDH Interval History: Reports doing well. No recent joint or skin flare ups. ROS (positives in bold): Gen: No fevers, no chills, no night sweats Pulm: No SOB and no cough CV: No chest pain Abd: No abd pain, no nausea, no vomiting, no diarrhea MSK: See HPI Physical exam: BP 120/71 Pulse 72 Temp 36.1 ??C (96.9 ??F) (Temporal) Ht 168.9 cm (5' 6.5) Wt 81.6 kg (180lb) SpO2 99% BMI 28.62 kg/m?? Gen: Well appearing, alert and oriented [...] on 12/03/2020 Assessment: Mack Charles is a 76 y.o. male with the PMH of psoriasis, [...] labs done at outside facility shows normal CBC, ESR, CRP and very mildly elevated AST. Patient now wants to continue with the follow-up at 6 months. Advised him about the need for blood work-up every 3 months to which he is agreeable. Lab order sent to [facility]. He does not want to go with current dose but is agreeable for flu vaccination which he wants to do at a local pharmacy. Instructed him tohold methotrexate for 2 weeks after the vaccination. Plan: -Continue methotrexate at 20 milligrams weekly, split dosing to be taken 12 hours apart, along with daily folic acid. -Repeat CBC and CMP in 3 months. External orders given. Follow-up in 6 months. Patient was discussed with Dr. Flores. Richard Tian MD Rheumatology Fellow Pager: [phone] Monica Flores MD - 08/08/2021 10:30 AM EST I discussed this patient's care with Dr. Tian and agree with the details outlined in his note. documented in this encounter Plan of Treatment Upcoming Encounters Date Type Specialty Care Team Description 05/09/2022 Office Visit Rheumatology Alexandro Tian nd, MD [place] [phone] (Wo rk) Scheduled Orders Name Type Priority Associated Diagnoses Order S chedule CBC (with Diff) Lab Routine Psoriatic arthritis Expec sara: 08/08/2021, Expires: 2021 Comprehensive metabolic Lab Routine Psoriatic arthrit is Expected: 08/08/2021, panel (non-fasting) Expires: 08/08/2022 Sedimentation rate Lab Routine Psoriatic arthritis Ex pected: 08/08/2021, Expires: 2021 documented as of this encounter Results (ABNORMAL) CRP, acute inflammation (02/06/2022 12:21 PM EDT) P athologist Signature CRP 5.2 (H) <=4.9 mg/L [facility] Specimen Anatomical Collection Method Collection Time Receive d Time (Source) Location / / Volume Laterality Blood 02/06/2022 12:21 02/06/2022 PM EDT 12:33 PM EDT Resulting Agency Comment Spec In Lab Monica Flores MD CHEMISTRY ORDERABLES Performing Organization Address City/State/[place] [address] documented in this encounter Visit Diagnoses Diagnosis Psoriatic arthritis Psoriatic arthropathy documented in this encounter Care Teams Residential Support Worker Relationship Specialty Start Date End Date Priscilla Moura MD PCP - General Family Medicine 05/05/20 [address] [place] [address] documented as of this encounter
--- OUTSIDE RECORDS SUMMARY | 2022-05-05 01:21 | XMS_ITS | Encounter Summary ---
:1945 Author Organization [facility] [place] [address] Care Team Providers Name Role Phone Priscilla Moura MD Primary Care Provider Reason for Visit Reason Comments Follow-up Encounter Details Date Type Department Care Team Description 02/06/2022 Office Visit Rheumatology at [place] Jaylan, Psoriatic arthritis [facility] [place] [address] RHEUMATOLOGY [place], [place] [address] Social History Tobacco Use Types [...] Mass Index 29.13 02/06/2022 11:03 AM EDT documented in this encounter Progress Notes Richard Tian MD - 02/06/2022 11:00 AM EDT Rheumatology Outpatient Follow Up Note PCP: Priscilla Moura MD Mack Charles is a 77 y.o. male who we are seeing for [...] Allergies: Reviewed in eDH Interval History: Reports feeling well. No recent skin or joint flareups. He does not report significant morning stiffness either. ROS (positives in bold): Gen: No fevers, no chills, no night sweats Pulm: No SOB but cough CV: No chest pain Abd: No abd pain, no nausea, no vomiting, no diarrhea MSK: See HPI Physical exam: BP 127/65 Pulse 65 Temp 36.2 ??C (97.2 ??F) (Temporal) Resp 18 Ht 167.6 cm (5' 6) Wt 81.9kg (180 lb 8 oz) SpO2 98% BMI 29.13 kg/m?? Gen: Well appearing, alert and oriented [...] and knees. Labs/Studies: Reviewed recent labs done in 12/2021. Normal ESR, transaminases, CBC but mildly elevated CRP at 8.5. Assessment: Mack Charles is a 77 y.o. male with the PMH of psoriasis, PsA, HTN and anxiety who is presenting for follow up of his psoriatic arthritis. Feels well without any recent joint flareups or prolonged morning stiffness. He currently has no evidence of enthesitis, dactylitis or synovitis on examination. Physical examination does not show any evidence of synovitis in the hands or any rash. Recent labs done at outside facility shows normal CBC, CMP, ESR, but mildly elevated CRP. Patient had some URI symptoms at the time of blood work-up. We will repeat the labs. Plan: -Continue methotrexate at 20 milligrams weekly, split dosing to be taken 12 hours apart, along with daily folic acid. -Repeat CBC, CMP, ESR and CRP today. Follow-up in 3 months. Patient was discussed with Dr. Wharton. Richard Tian MD Rheumatology Fellow Pager: [phone] documented in this encounter Plan of Treatment Upcoming Encounters Date Type Specialty Care Team Description 05/09/2022 Office Visit Rheumatology Alexandro Tian nd, MD [place] [address] (Wo rk) Scheduled Orders Name Type Priority Associated Diagnoses Order S chedule CBC (with Diff) Lab Routine Psoriatic arthritis Expec sara: 02/06/2022, Expires: 2022 Comprehensive metabolic Lab Routine Psoriatic arthrit is Expected: 02/06/2022, panel (non-fasting) Expires: 02/06/2023 CRP, acute inflammation Lab Routine Psoriatic arthrit is Expected: 02/06/2022, Expires: 2021 Sedimentation rate Lab Routine Psoriatic arthritis Ex pected: 02/06/2022, Expires: 2022 documented as of this encounter Procedures Procedure Name Priority Date/Time Associated Comments Diagnosis HC C-REACTIVE PROTEIN Routine 02/06/2022 12:21 Psoriatic arthr itis Results for this PM EDT procedure are i n the results section. HEMOGRAM Routine 02/06/2022 12:21 Psoriatic arthritis Resu lts for this PM EDT procedure are i n the results section. DIFFERENTIAL, Routine 02/06/2022 12:21 Psoriatic arthritis Res ults for this AUTOMATED PM EDT procedure are i n the results section. HC ESR-SEDIMENTATION Routine 02/06/2022 12:21 Psoriatic arthri tis Results for this RATE, BLOOD PM EDT procedure are i n the results section. HC CBC,PLT & AUTO DIFF Routine 02/06/2022 12:21 Psoriatic arth ritis PM EDT COMPREHENSIVE Routine 02/06/2022 12:21 Psoriatic arthritis Res ults for this METABOLIC PANEL PM EDT procedure ar e in (NON-FASTING) the results section. documented in this encounter Results Differential, Automated (02/06/2022 12:21 PM EDT) P athologist Signature Neutrophils % 63.7 % [facility] Neutr Abs (ANC) 4.28 1.70 - [facility] 6.10 [facility] x10(3)/[facility] LABORATORY Lymphocytes % 20.2 % [facility] Lymphocytes Abs 1.4 0.9 - 3.2 [facility] x10(3)/[facility] LABORATORY Monocytes % 12.9 % [facility] Monocyte Abs 0.9 0.3 - 0.9 [facility] x10(3)/[facility] LABORATORY Eosinophils % 2.4 % [facility] Eosinophils Abs 0.2 0.0 - 0.4 [facility] x10(3)/[facility] LABORATORY Basophils % 0.7 % [facility] Basophils Abs 0.0 0.0 - 0.1 [facility] x10(3)/[facility] LABORATORY Immature Gran % 0.10 % [facility] Comment: Immature granulocytes(IG's)percentage an d absolute count will include metamyelocytes, myelocytes, and promyelo cytes. Blood smears from CBCs yielding IG's will be scanned manually for concor dance. If this scan disagrees with the automated IG or if promyelocytes are not ed, a manual differential will be performed. Wanda Gran Abs 0.01 0.00 - 0.04 x10(3)/[facility] LABORATORY Specimen Anatomical Collection Method Collection Time Receive d Time (Source) Location / / Volume Laterality Blood 02/06/2022 12:21 02/06/2022 PM EDT 12:33 PM EDT Resulting Agency Comment Spec In Lab Richard Tian MD HEMATOLOGY ORDERABLES Performing Organization Address City/State/[place] [address] (ABNORMAL) Hemogram (02/06/2022 12:21 PM EDT) Analysis Performed At Patho logist Time Signature WBC 6.7 4.0 - 9.5 [facility] x10(3)/[facility] LABORATORY RBC 4.72 4.58 - [facility] 5.54 [facility] x10(6)/[facility] LABORATORY Hemoglobin 14.4 13.7 - [facility] 16.[facility] g/dL [facility] Hematocrit 42.6 40.5 - [facility] 48.5 % [facility] MCV 90.3 82.9 - [facility] 93.1 [facility] LABORATORY MCH 30.5 27.5 - [facility] 32.1 pg [facility] MCHC 33.8 32.0 - [facility] 35.7 g/dL [facility] Platelets 298 145 - 357 [facility] x10(3)/[facility] LABORATORY RDWSD 46.9 (H) 36.0 - [facility] 45.0 [facility] LABORATORY RDWCV 14.2 (H) 11.4 - [facility] 13.8 % [facility] MPV 9.4 7.6 - 12.9 [facility] LABORATORY nRBC % Auto 0.0 % [facility] nRBC Abs Auto 0.000 0.000 - [facility] 0.000 [facility] x10(3)/[facility] LABORATORY Specimen Anatomical Collection Method Collection Time Receive d Time (Source) Location / / Volume Laterality Blood 02/06/2022 12:21 02/06/2022 PM EDT 12:33 PM EDT Resulting Agency Comment Spec In Lab Richard Tian MD HEMATOLOGY ORDERABLES Performing Organization Address City/State/ZIP Code Phon e Number [address] (ABNORMAL) CRP, acute inflammation (02/06/2022 12:21 PM EDT) P athologist Signature CRP 5.2 (H) <=4.9 mg/L [facility] Specimen Anatomical Collection Method Collection Time Receive d Time (Source) Location / / Volume Laterality Blood 02/06/2022 12:21 02/06/2022 PM EDT 12:33 PM EDT Resulting Agency Comment Spec In Lab Monica Flores MD CHEMISTRY ORDERABLES Performing Organization Address City/[facility]/ZIP Code Phon e Number [address] (ABNORMAL) Comprehensive metabolic panel (non-fasting) (02/06/2022 12:21 PM EDT) P athologist Signature Glucose Lvl 120 65 - 199 [facility] mg/dL [facility] Comment: Diabetes: >=200 mg/dL plus symp toms BUN 19 10 - 20 mg/dL [facility] Creatinine 0.93 0.80 - 1.50 mg/dL [facility] Sodium 137 135 - 145 mmol/L [facility] Potassium 3.4 (L) 3.5 - 5.0 mmol/L [facility] Comment: Please note: ??Patients with WBC >100,00 0 may have falsely elevated Potassium levels. ??For accurate Potassium quantif ication in these patients send serum separator tube (gold top) for subsequent determinations. ??Contact the Clinical Chemistry Laboratory if there are any qu estions. Chloride 101 98 - 107 mmol/L [facility] CO2 25 22 - 31 mmol/L [facility] Anion Gap 11 5 - 15 mmol/L [facility] Calcium 9.2 8.5 - 10.5 mg/dL [facility] Total Protein 7.0 6.1 - 8.0 g/dL [facility] Albumin 4.1 3.2 - 5.2 g/dL [facility] AST 22 0 - 39 unit/L [facility] ALT 16 0 - 55 unit/L [facility] Alk Phos 109 40 - 130 unit/L [facility] Total Bilirubin 0.3 0.2 - 1.3 mg/dL [facility] Estimated GFR 80 >=60 mL/min/1.73 m?? [facility] Comment: This patient? s estimated [...] Organization Address City/State/[place] [address] Sedimentation rate (02/06/2022 12:21 PM EDT) P athologist Signature Sed Rate 26 3 - 46 [facility] mm/hr [facility] Comment: Effective August 27, 2019 [...] Organization Address City/State/[place] [address] XR Chest PA & [...] who have questions please contact the health care management assistant that requested your imaging first. ? Narrative [...] ho have questions please contact the health care management assistant that requested your imaging first. Helen Wharton DO IMG DX ORDERABLES documented in this encounter Visit Diagnoses Diagnosis Psoriatic arthritis Psoriatic arthropathy Psoriatic arthritis Psoriatic arthropathy documented in this encounter Care Teams Asic Design Engineer Relationship Specialty Start Date End Date Priscilla Moura MD PCP - General Family Medicine 05/05/20 [address] [place] [address] documented as of this encounter
--- OUTSIDE RECORDS SUMMARY | 2022-05-05 01:21 | XMS_ITS | Encounter Summary ---
:1945 Author Organization [facility] [place] [address] Care Team Providers Name Role Phone Priscilla Moura MD Primary Care Provider Reason for Visit Reason Onset Date Comments Medication Refill 04/28/2021 Encounter Details Date Type Department Care Team Description 04/28/2021 Refill Rheumatology at [facility] Jaylan, [place], Psoriatic arthritis [facility] [place] [address] [facility] [phone] RHEUMATOLOGY [place], [place] [address] (Wo rk) Social History Tobacco Use Types Packs/Day Years Used Date Former Smoker Cigarettes Smokeless Tobacco: Never Used Alcohol Use Standard Drinks/Week Comments Yes 0 (1 standard drink = 0.6 oz pure alcoho l) Alcohol Habits Answer Date Recorded How often do you have a drink containing 4 or more times a w [place] 06/02/2020 alcohol? How many drinks containing alcohol do you have Not asked on a typical day when you are drinking? How often do you have six or more drinks on one Not asked occasion? Comment: Not asked Sex Assigned at Date Recorded Not on file documented as of this encounter Miscellaneous Notes Telephone Encounter - Lissette Hough LPN - 04/28/2021 2:59 PM EDT Requested Prescriptions Pending Prescriptions Disp Refills ??? metHOTREXate 2.5 mg Tablet 32 tablet 3 Sig: Take 8 tablets (20 mg) by mouth once a week. Last office visit: 12/09/2020, no future appts scheduled Last refill: 12/09/2020 documented in this encounter Plan of Treatment Upcoming Encounters Date Type Specialty Care Team Description 05/09/2022 Office Visit Rheumatology Alexandro Tian nd, MD [place] [id number] (Wo rk) documented as of this encounter Visit Diagnoses Diagnosis Psoriatic arthritis Psoriatic arthropathy documented in this encounter Care Teams Lumber Sales Supervisor Relationship Specialty Start Date End Date Priscilla Moura MD PCP - General Family Medicine 05/05/20 [address] [place] [address] documented as of this encounter
--- OUTSIDE RECORDS SUMMARY | 2022-05-05 01:21 | XMS_ITS | Encounter Summary ---
:1945 Author Organization [facility] [place] [address] Care Team Providers Name Role Phone Priscilla Moura MD Primary Care Provider Encounter Details Date Type Department Care Team Description 08/19/2020 Telephone Rheumatology at [facility] Richard Tian MD [facility] [place] [address] RHEUMATOLOGY DEPT [phone] [place], [place] [address] (Wo rk) Social History Tobacco Use Types Packs/Day Years Used Date Former Smoker Cigarettes Smokeless Tobacco: Never Used Alcohol Use Standard Drinks/Week Comments Yes 0 (1 standard drink = 0.6 oz pure alcoho l) Alcohol Habits Answer Date Recorded How often do you have a drink containing 4 or more times a w [place] 06/02/2020 alcohol? How many drinks containing alcohol [...] Office Visit Rheumatology Alexandro Tian nd, MD [place], [place] [address] (Wo rk) documented as of this encounter Visit Diagnoses Not on filedocumented in this encounter Care Teams Acquisition Editor Relationship Specialty Start Date End Date Priscilla Moura MD PCP - General Family Medicine 05/05/20 [address] [place], [place] [address] documented as of this encounter
--- OUTSIDE RECORDS SUMMARY | 2022-05-05 01:21 | XMS_ITS | Encounter Summary ---
:1945 Author Organization [facility] [place] [address] Care Team Providers Name Role Phone Priscilla Moura MD Primary Care Provider Encounter Details Date Type Department Care Team Description 08/20/2020 Orders Only Rheumatology at [facility] Jaylan, Psoriatic arthritis [facility] [place] [address] [facility] [phone] DR RHEUMATOLOGY [place], [place] [address] Social History Tobacco Use Types Packs/Day Years Used Date Former Smoker Cigarettes Smokeless Tobacco: Never Used Alcohol Use Standard Drinks/Week Comments Yes 0 (1 standard drink = 0.6 oz pure alcoho l) Alcohol Habits Answer Date Recorded How often do you have a drink containing 4 or more times a w [place] 06/02/2020 alcohol? 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
[2022-05-05 11:09] LABS: ESR 11 mm/hr (0-20)
[2022-05-05 11:10] LABS: Abs Immature Grans 0.02 10^3/uL (0.0-0.06); Absolute Basophil Count 0.04 10^3/uL (0.0-0.2); Absolute Eosinophil Count 0.06 10^3/uL (0.0-0.7); Absolute Lymphocyte Count 1.44 10^3/uL (1.2-3.4); Absolute Monocyte Count 0.66 10^3/uL (0.1-0.8); Absolute Neutrophil Count 5.01 10^3/uL (1.2-6.7); Basophils % 0.6; Eosinophils % 0.8; HCT 41.9 % (40.0-50.0); HGB 13.8 g/dL (13.5-17.5); Immature Grans % 0.3; Lymphocytes % 19.9; MCH 29.7 pg (27.0-33.0); MCHC 32.9 % (32.0-36.0); MCV 90 fL (80-95); MPV 9.3 fL (8.0-11.0); Monocytes % 9.1; Neutrophils % 69.3; Platelet Count 325 10^3/uL (130-400); RBC 4.65 10^6/uL (4.36-5.78); RDW 14.4 % (11.8-14.1); RDW-SD 46.7 fL; WBC 7.23 10^3/uL (4.4-10.8)
[2022-05-05 11:29] LABS: ALT 25 U/L (16-63); AST 20 U/L (15-37); Albumin 3.8 g/dL (3.4-5.0); Alkaline Phosphatase 69 U/L (46-116); Anion Gap 6.2 mmol/L (3-11); BUN 11 mg/dL (7-18); Bilirubin, Total 0.6 mg/dL (0.2-1.0); CO2 31.8 mmol/L (21.0-32.0); CREATININE 0.9 mg/dL (0.70-1.30); Calcium 8.9 mg/dL (8.5-10.1); Chloride 100 mmol/L (98-107); Glucose 100 mg/dL (74-106); Potassium 3.8 mmol/L (3.5-5.1); Sodium 138 mmol/L (136-145); Total Protein 7.7 g/dL (6.4-8.2)
== END 2022-05-05 01:15 | disposition home or self-care (01) ==
LOC: LBO 01:14
PROVIDERS: PCP Family Medicine; Visit Provider Internal Medicine Rheumatology
DX: L40.50 Arthropathic psoriasis, unspecified (principal)
CPT/HCPCS: 36415; 80053; 85652; 85025

== ENCOUNTER 2024-03-19 02:37 | Outpatient (CLI) | payer MEDICARE, SELFPAY ==
[2024-03-19 11:17] LABS: Abs Immature Grans 0.01 10^3/uL (0.0-0.06); Absolute Basophil Count 0.04 10^3/uL (0.0-0.2); Absolute Eosinophil Count 0.15 10^3/uL (0.0-0.7); Absolute Lymphocyte Count 1.47 10^3/uL (1.2-3.4); Absolute Monocyte Count 0.62 10^3/uL (0.1-0.8); Absolute Neutrophil Count 3.81 10^3/uL (1.2-6.7); Basophils % 0.7 %; Eosinophils % 2.5 %; HCT 41.6 % (40.0-50.0); HGB 14.8 g/dL (13.5-17.5); Immature Grans % 0.2 %; Lymphocytes % 24.1 %; MCH 33.7 pg (27.0-33.0); MCHC 35.6 % (32.0-36.0); MCV 95 fL (80-95); MPV 9.6 fL (8.0-11.0); Monocytes % 10.2 %; Neutrophils % 62.3 %; Platelet Count 288 10^3/uL (130-400); RBC 4.39 10^6/uL (4.36-5.78); RDW 13.1 % (11.8-14.1); RDW-SD 45.6 fL
[2024-03-19 12:07] LABS: ALT 57 U/L (16-63); AST 46 U/L (15-37); Albumin 3.5 g/dL (3.4-5.0); Alkaline Phosphatase 91 U/L (46-116); Anion Gap 9.9 mmol/L (3-11); BUN 22 mg/dL (7-18); Bilirubin, Total 0.46 mg/dL (0.2-1.0); CO2 29.1 mmol/L (21.0-32.0); CREATININE 1.1 mg/dL (0.70-1.30); Chloride 102 mmol/L (98-107); Estimated GFR 69.14 (mL/min/1.73m2); Glucose 119 mg/dL (74-106); Potassium 3.5 mmol/L (3.5-5.1); Sodium 141 mmol/L (136-145); Total Protein 7.4 g/dL (6.4-8.2)
== END 2024-03-19 02:38 | disposition home or self-care (01) ==
LOC: LBO 02:37
PROVIDERS: PCP Family Medicine; Visit Provider Internal Medicine Rheumatology
DX: L40.50 Arthropathic psoriasis, unspecified (principal)
CPT/HCPCS: 36415; 80053; 85025

== ENCOUNTER 2024-10-17 12:31 | Outpatient (CLI) | payer MEDICARE, SELFPAY ==
[2024-10-17 12:53] LABS: Abs Immature Grans 0.03 10^3/uL (0.0-0.06); Absolute Basophil Count 0.04 10^3/uL (0.0-0.2); Absolute Eosinophil Count 0.14 10^3/uL (0.0-0.7); Absolute Lymphocyte Count 1.83 10^3/uL (1.2-3.4); Absolute Monocyte Count 0.73 10^3/uL (0.1-0.8); Basophils % 0.5 %; Eosinophils % 1.9 %; HCT 42.9 % (40.0-50.0); HGB 14.6 g/dL (13.5-17.5); Immature Grans % 0.4 %; Lymphocytes % 24.5 %; MCH 31.3 pg (27.0-33.0); MCV 92 fL (80-95); MPV 9.1 fL (8.0-11.0); Monocytes % 9.8 %; Neutrophils % 62.9 %; Platelet Count 309 10^3/uL (130-400); RBC 4.66 10^6/uL (4.36-5.78); RDW 14.4 % (11.8-14.1); RDW-SD 48.3 fL; WBC 7.47 10^3/uL (4.4-10.8)
[2024-10-17 13:20] LABS: ALT 32 U/L (16-63); AST 29 U/L (15-37); Albumin 3.7 g/dL (3.4-5.0); Alkaline Phosphatase 95 U/L (46-116); BUN 16 mg/dL (7-18); Bilirubin, Total 0.58 mg/dL (0.2-1.0); CREATININE 1.3 mg/dL (0.70-1.30); Calcium 9.5 mg/dL (8.5-10.1); Chloride 103 mmol/L (98-107); Estimated GFR 56.58 (mL/min/1.73m2); Glucose 95 mg/dL (74-106); Potassium 3.6 mmol/L (3.5-5.1); Sodium 143 mmol/L (136-145); Total Protein 7.6 g/dL (6.4-8.2)
== END 2024-10-17 12:32 | disposition home or self-care (01) ==
PROVIDERS: PCP Family Medicine; Visit Provider Internal Medicine Rheumatology
DX: L40.50 Arthropathic psoriasis, unspecified (principal)
CPT/HCPCS: 36415; 80053; 85025

== ENCOUNTER 2024-12-10 09:34 | Outpatient (REF) | payer MEDICARE, SELFPAY ==
[2024-12-10 16:15] LABS: Microalb ug/mg Crea 118.5 ug/mg Cr
== END 2024-12-10 09:35 | disposition home or self-care (01) ==
LOC: NCHCN 09:34
PROVIDERS: PCP Family Medicine; Visit Provider Family Medicine
DX: I10 Essential (primary) hypertension (principal)
CPT/HCPCS: 82043; 82570